=== PATIENT | male | born 1970 | race Caucasian/White ===

== ENCOUNTER 2017-10-20 14:36 | Emergency (ER) | payer OTHER ==
[2017-10-20 14:46] VITALS: BP 118/83; PULSE 87; TEMP 98; BMI 29.0
--- NOTE | 2017-10-20 14:59 | PDOC ---
Rapid Medical Evaluation Chief Complaint: Cold Symptoms Time Seen by Provider: 10/20/17 14:45 Medical Evaluation: Allergies Allergy/AdvReac Type Severity Reaction Status Date / Time No Known Allergies Allergy Verified 10/20/17 14:46 Vital Signs Temp Pulse Resp BP Pulse Ox 98.0 F 87 20 118/83 99 10/20/17 14:43 10/20/17 14:43 10/20/17 14:43 10/20/17 14:43 10/20/17 14:43 10/20/17 14:48 I have performed a brief in-person evaluation of this patient. The patient presents with a chief complaint of:cough x months, dx w/ "allergies ". No sob/cp/f/c. H/o colon ca s/p surg/chemo 3 yrs ago. No tob hx. No unexplained weight loss Pertinent physical exam findings:stable I have ordered the following:cxr The patient will proceed to the ED for further evaluation. Discharge Disposition - Diagnosis Cough - Referrals Referrals: Bronson Morse MD [Primary Care Provider] - - Patient Instructions - Post Discharge Activity
--- NOTE | 2017-10-20 15:32 | PDOC ---
History of Present Illness - General Chief Complaint: Cold Symptoms Stated Complaint: COUGH Time Seen by Provider: 10/20/17 14:45 History Source: Patient Exam Limitations: No Limitations - History of Present Illness Initial Comments: 10/20/17 15:43 Best Contact: PCP:Dr. Piter Mejia Pmhx: COlon Ca Pshx: 2004: Laproscopic Cholecystectomy 2014: COlon Resection Allergies:NKDA FH:N/A Social Hx: Ciarettes/ 0 Alcohol/ 0 Drugs/0 LMP:N/A 47-year-old male presents to the ER complaining of a nonproductive intermittent cough 8 months without fever, chills, nausea/vomiting, headache, dizziness, lightheadedness, facial pains, nasal congestion, rhinorrhea, earaches, sore throat, shortness of breath, chest pain, neck or back pains, abdominal pains. Patient states he's taken antibiotics about 4 months ago Past History - Past Medical History Allergies/Adverse Reactions: Allergies Allergy/AdvReac Type Severity Reaction Status Date / Time No Known Allergies Allergy Verified 10/20/17 14:46 Home Medications: Ambulatory Orders Azithromycin [Zithromax -] 250 mg PO UTDICT #6 tab 10/20/17 Cancer: Yes (COLORECTAL CA, CURRENT RADIATION THERAPY) COPD: No - Surgical History Abdominal Surgery: Yes (HERNIA REMOVED) Cholecystectomy: Yes - Immunization History Immunization Up to Date: Yes - Suicide/Smoking/Psychosocial Hx Smoking History: Never smoked Hx Alcohol Use: No Drug/Substance Use Hx: No Review of Systems - Review of Systems Able to Perform ROS?: Yes Comments:: 10/20/17 15:43 CONSTITUTIONAL: Absent: fever, chills, diaphoresis, generalized weakness, malaise, loss of appetite HEENT: Absent: rhinorrhea, nasal congestion, throat pain, throat swelling, difficulty swallowing, mouth swelling, ear pain, eye pain, visual Changes CARDIOVASCULAR: Absent: chest pain, loss of consciousness, palpitations, irregular heart rate, peripheral edema RESPIRATORY: +cough Absent: shortness of breath, dyspnea with exertion, orthopnea, wheezing, stridor , hemoptysis GASTROINTESTINAL: Absent: abdominal pain, abdominal distension, nausea, vomiting, diarrhea, constipation, melena, hematochezia GENITOURINARY: Absent: dysuria, frequency, urgency, hesitancy, hematuria, flank pain, genital pain MUSCULOSKELETAL: Absent: myalgia, arthralgia, joint swelling SKIN: Absent: rash, itching, pallor HEMATOLOGIC/IMMUNOLOGIC: Absent: easy bleeding, easy bruising, lymphadenopathy, frequent infections ENDOCRINE: Absent: unexplained weight gain, unexplained weight loss, heat intolerance, cold intolerance NEUROLOGIC: Absent: headache, focal weakness or paresthesias, dizziness, unsteady gait, seizure, mental status changes, bladder or bowel incontinence PSYCHIATRIC: Absent: anxiety, depression, suicidal or homicidal ideation, hallucinations. Is the patient limited Arabic proficient: No *Physical Exam - Vital Signs Last Vital Signs Temp Pulse Resp BP Pulse Ox 98.0 F 87 20 118/83 99 10/20/17 14:43 10/20/17 14:43 10/20/17 14:43 10/20/17 14:43 10/20/17 14:43 - Physical Exam Comments: 10/20/17 15:43 GENERAL: Well developed, well nourished. Awake and alert. No acute distress. HEENT: Normocephalic, atraumatic. PERRLA, EOMI. No conjunctival pallor. Sclera are non- icteric. Moist mucous membranes. Oropharynx is clear. NECK: Supple. Full ROM. No JVD. Carotid pulses 2+ and symmetric, without bruits. No thyromegaly. No lymphadenopathy. CARDIOVASCULAR: Regular rate and rhythm. No murmurs, rubs, or gallops. Distal pulses are 2+ and symmetric. PULMONARY: No evidence of respiratory distress. Lungs clear to auscultation bilaterally. No wheezing, rales or rhonchi. ABDOMINAL: Soft. Non-tender. Non-distended. No rebound or guarding. No organomegaly. Normoactive bowel sounds. MUSCULOSKELETAL Normal range of motion at all joints. No bony deformities or tenderness. No CVA tenderness. EXTREMITIES: No cyanosis. No clubbing. No edema. No calf tenderness. SKIN: Warm and dry. Normal capillary refill. No rashes. No jaundice. NEUROLOGICAL: Alert, awake, appropriate. Cranial nerves 2-12 intact. No deficits to light touch and temperature in face, upper extremities and lower extremities. No motor deficits in the in face, upper extremities and lower extremities. Normoreflexic in the upper and lower extremities. Normal speech. Toes are down- going bilaterally. Gait is normal without ataxia. PSYCHIATRIC: Cooperative. Good eye contact. Appropriate mood and affect. ED Treatment Course - RADIOLOGY Radiograph Interpretation: 10/20/17 15:45 CXR: 2v RLL infiltrate *DC/Admit/Observation/Transfer Diagnosis at time of Disposition: Cough RLL pneumonia Qualifiers: Pneumonia type: due to unspecified organism Qualified Code(s): J18.1 - Lobar pneumonia, unspecified organism - Discharge Dispostion Disposition: HOME Condition at time of disposition: Stable Decision to Admit order: No - Prescriptions Prescriptions: Azithromycin [Zithromax -] 250 mg PO UTDICT #6 tab - Referrals Referrals: Bronson Morse MD [Primary Care Provider] - - Patient Instructions Printed Discharge Instructions: DI for Atypical Pneumonia Additional Instructions: serafin wiley prescribe Follow up with our physician within 48 hours Return to the ER for severe/persistent/worsening symptoms - Post Discharge Activity
== END 2017-10-20 15:53 | disposition home or self-care (01) ==
LOC: JERFT 14:36
DX: J18.1 Lobar pneumonia, unspecified organism (principal); Z85.038 Personal history of other malignant neoplasm of large intestine
CPT/HCPCS: 71046-TC-FY; 99281-25

== ENCOUNTER 2018-05-11 17:16 | Emergency (ER) | payer OTHER ==
[2018-05-11 17:31] VITALS: TEMP 98.6; BMI 21.2
--- NOTE | 2018-05-11 17:35 | PDOC ---
Rapid Medical Evaluation Chief Complaint: Pain Time Seen by Provider: 05/11/18 17:27 Medical Evaluation: Allergies Allergy/AdvReac Type Severity Reaction Status Date / Time No Known Allergies Allergy Verified 10/20/17 14:46 05/11/18 17:30 I have performed a brief in-person evaluation of this patient. The patient presents with a chief complaint of: H/o metastatic colon ca (pulm and liver), s/p CBD stent placement 01/15 at [facility], here w/ right upper abd pain w / n/v x 3 days. Seen in office by Dr Piotr Mukherjee and sent in to r/o occlusion. Pertinent physical exam findings: Tachy to 122, afebrile, defer rest of exam to ED provider I have ordered the following:labs The patient will proceed to the ED for further evaluation Discharge Disposition - Diagnosis Abdominal pain Qualifiers: Abdominal location: upper abdomen, unspecified Qualified Code(s): R10.10 - Upper abdominal pain, unspecified - Referrals - Patient Instructions - Post Discharge Activity
[2018-05-11 18:30] LABS: BASO % 0.4 % (0-2.0); EOS % 0.2 % (0-4.5); HEMATOCRIT 44.3 % (35.4-49); HEMOGLOBIN 15.3 GM/dL (11.7-16.9); LYMPH % 3.2 % (8-40); MCHC 34.6 g/dl (32.0-35.9); MEAN CELL VOLUME 86.7 fl (80-96); MEAN PLT VOLUME 7.9 fl (7.5-11.1); MONO % 4.4 % (3.8-10.2); NEUT % 91.8 % (42.8-82.8); PLATELET COUNT 494 K/MM3 (134-434); RBC 5.11 M/mm3 (4.00-5.60); RDW 17.5 % (11.9-15.9); WHITE BLOOD COUNT 11.5 K/mm3 (4.0-10.0)
[2018-05-11 19:04] LABS: ALBUMIN 2.8 g/dl (3.4-5.0); ALK PHOS 1134 U/L (45-117); ANION GAP 8 MMOL/L (8-16); BILIRUBIN,TOTAL 0.7 mg/dL (0.2-1); BLOOD UREA NITROGEN 12 mg/dL (7-18); CALCIUM 9.1 mg/dL (8.5-10.1); CHLORIDE 102 mmol/L (98-107); CO2 28 mmol/L (21-32); CREATININE 0.9 mg/dL (0.55-1.3); GLUCOSE,RANDOM 100 mg/dL (74-106); LIPASE 142 U/L (73-393); POTASSIUM 4.9 mmol/L (3.5-5.1); SGOT/AST 124 U/L (15-37); SGPT/ALT 100 U/L (13-61); SODIUM 137 mmol/L (136-145); TOT PROT 7.3 g/dl (6.4-8.2)
[2018-05-11] MEDS ORDERED: MORPHINE SULFATE 2 MG/ML VIAL IVPUSH ONE (19:07)
[2018-05-11] MEDS ORDERED: MORPHINE SULFATE 2 MG/ML VIAL ONE (19:12)
--- NOTE | 2018-05-11 19:21 | PDOC ---
*Physical Exam - Vital Signs Last Vital Signs Temp Pulse Resp BP Pulse Ox 98.6 F 122 H 16 124/87 95 05/11/18 17:28 05/11/18 17:28 05/11/18 17:28 05/11/18 17:28 05/11/18 17:28 ED Treatment Course - LABORATORY CBC & Chemistry Diagram: 05/11/18 18:05 05/11/18 18:05 - ADDITIONAL ORDERS Additional order review: Laboratory Results 05/11/18 18:05 Sodium 137 Potassium 4.9 Chloride 102 Carbon Dioxide 28 Anion Gap 8 BUN 12 Creatinine 0.9 Creat Clearance w eGFR > 60 Random Glucose 100 Calcium 9.1 Total Bilirubin 0.7 AST 124 H ALT 100 H Alkaline Phosphatase 1134 H Total Protein 7.3 Albumin 2.8 L Lipase 142 05/11/18 18:05 RBC 5.11 MCV 86.7 MCHC 34.6 RDW 17.5 H MPV 7.9 Neutrophils % 91.8 H Lymphocytes % 3.2 L D Monocytes % 4.4 Eosinophils % 0.2 Basophils % 0.4 Medical Decision Making - Medical Decision Making 05/11/18 19:18 47 year old male with PMH colon cancer with mets to liver/adrenals/lungs presented to ED for upper abdominal pain. Pt has CBD stent. Initial Vital Signs Temp Pulse Resp BP Pulse Ox 98.6 F 122 H 16 124/87 95 05/11/18 17:28 18 17:28 18 17:28 05/11/18 17:28 05/11/18 17:28 Afebrile. Tachycardic. No tachypnea. No hypotension. No hypoxia on room air. CBC WBC 11.5 K/mm3 (4.0-10.0) H 05/11/18 18:05 RBC 5.11 M/mm3 (4.00-5.60) 05/11/18 18:05 Hgb 15.3 GM/dL (11.7-16.9) 05/11/18 18:05 Hct 44.3 % (35.4-49) 05/11/18 18:05 MCV 86.7 fl (80-96) 05/11/18 18:05 MCH 30.0 pg (25.7-33.7) 05/11/18 18:05 MCHC 34.6 g/dl (32.0-35.9) 05/11/18 18:05 RDW 17.5 % (11.9-15.9) H 05/11/18 18:05 Plt Count 494 K/MM3 (134-434) H D 05/11/18 18:05 MPV 7.9 fl (7.5-11.1) 05/11/18 18:05 Absolute Neuts (auto) 10.6 K/mm3 (1.5-8.0) H 05/11/18 18:05 Neutrophils % 91.8 % (42.8-82.8) H 05/11/18 18:05 Lymphocytes % 3.2 % (8-40) L D 05/11/18 18:05 Monocytes % 4.4 % (3.8-10.2) 05/11/18 18:05 Eosinophils % 0.2 % (0-4.5) 05/11/18 18:05 Basophils % 0.4 % (0-2.0) 05/11/18 18:05 Nucleated RBC % 0 % (0-0) 05/11/18 18:05 Leukocytosis with left shift. CMP Sodium 137 mmol/L (136-145) 05/11/18 18:05 Potassium 4.9 mmol/L (3.5-5.1) 05/11/18 18:05 Chloride 102 mmol/L (98-107) 05/11/18 18:05 Carbon Dioxide 28 mmol/L (21-32) 05/11/18 18:05 Anion Gap 8 MMOL/L (8-16) 05/11/18 18:05 BUN 12 mg/dL (7-18) 05/11/18 18:05 Creatinine 0.9 mg/dL (0.55-1.3) 05/11/18 18:05 Creat Clearance w eGFR > 60 (>60) 05/11/18 18:05 Random Glucose 100 mg/dL (74-106) 05/11/18 18:05 Calcium 9.1 mg/dL (8.5-10.1) 05/11/18 18:05 Total Bilirubin 0.7 mg/dL (0.2-1) 05/11/18 18:05 AST 124 U/L (15-37) H 05/11/18 18:05 ALT 100 U/L (13-61) H 05/11/18 18:05 Alkaline Phosphatase 1134 U/L (45-117) H 05/11/18 18:05 Total Protein 7.3 g/dl (6.4-8.2) 05/11/18 18:05 Albumin 2.8 g/dl (3.4-5.0) L 05/11/18 18:05 Lipase 142 U/L (73-393) 05/11/18 18:05 No electrolyte abnormalities. No CHRIS. Transaminitis. - Not increased from prior lab work 12/2017 Normal lipase. Urine Test Results Urine Color Mary Jane 05/11/18 19:29 Urine Appearance Clear 05/11/18 19: Urine pH 5.0 (5.0-8.0) D 05/11/18 19:29 Ur Specific [place] 1.024 (1.010-1.035) 05/11/18 19:29 Urine Protein 1+ (NEGATIVE) H 05/11/18 19:29 Urine Glucose (UA) Negative (NEGATIVE) 05/11/18 19:29 Urine Ketones Negative (NEGATIVE) 05/11/18 19:29 Urine Blood Negative (NEGATIVE) 05/11/18 19:29 Urine Nitrite Negative (NEGATIVE) 05/11/18 19:29 Urine Bilirubin Negative (<2.0 mg/dL) 05/11/18 19:29 Ur Leukocyte Esterase Negative (NEGATIVE) 05/11/18 19:29 Ur Epithelial Cells Rare /HPF (FEW) 05/11/18 19:29 Urine Mucus Moderate 05/11/18 19:29 No evidence of UTI. CT abdomen/pelvis report: Abdomen and pelvis CT (with contrast) Clinical information: possible CBD stent occlusion/migration Multiplanar imaging was performed following the intravenous administration of nonionic contrast. Enteric contrast was not administered. In comparison to a prior CT exam of 01/26/2018 there is been interval insertion of a biliary stent which appears unremarkable in position. The cephalad aspect of the stent is positioned at the hepatic duct confluence, at the distal aspect is within the lumen of the second portion of the duodenal sweep. Interval resolution of extrahepatic biliary tract dilatation is noted as well as marked improvement in intrahepatic ductal dilatation. Status post cholecystectomy as on the prior exam. Interval increase in size and number is noted of very numerous left and right hepatic lobe mass lesions consistent with metastatic neoplastic disease. The most prominent hepatic lesion measures approximately 3 cm in diameter. Increased size and number is also noted involving multiple noncalcified nodules within the partially imaged lower lung ward. There is increased bilateral lower lobe interstitial thickening probably on the basis of lymphangitic neoplastic disease. A 7 cm left lower lobe partially necrotic mass lesion is again seen with associated distal atelectasis. There is resultant mild left lower lobe atelectasis. A small left pleural effusion is again seen Interval development of mild mesenteric edema is seen centrally. Multiple small bilateral renal intracortical hypodense foci noted on the prior exam are not as well seen which may have been on the basis of acute ischemia versus acute pyelonephritis. Stable bilateral adrenal lesions are seen. The spleen, and pancreas demonstrate no definite abnormality. There is no aortic aneurysm. No gross lymphadenopathy is seen. A surgical anastomosis is again noted along the rectosigmoid bowel. Note is again made of a small amount of pelvic free fluid. There is no CT evidence of appendicitis, diverticulitis or colitis. Colonic fecal retention which is probably moderate. Fractures are seen involving the right seventh and eighth ribs laterally which appear to be subacute. There is no obvious associated mass lesion or osteolysis. Impression: In comparison to a CT exam of 01/26/2018 prominently increased size and number is noted of very numerous hepatic lesions consistent with metastatic neoplastic disease. Interval insertion of a biliary stent is seen which appears unremarkable in position. Markedly improved biliary tract dilatation is noted. Increased size and number is seen of multiple bilateral lower lobe pulmonary nodules. There is increased bilateral lower lobe interstitial thickening probably on the basis of lymphangitic neoplastic disease. Note is again made of a 7 cm partially necrotic left lower lobe mass lesion with associated atelectasis and resultant mild ipsilateral mediastinal deviation. A small left pleural effusion is again noted. Development of mild mesenteric edema is noted. Stable bilateral adrenal lesions are seen. A rectosigmoid surgical bowel anastomosis is again noted. A small amount of pelvic free fluid is seen without interval change. Colonic fecal retention is noted which is probably somewhat increased. Fractures are noted of the right seventh and eighth ribs laterally which appear to be subacute and probably nonpathologic. Reported By: Babak Engle MD 05/11/18 21:19 Pt reassessed, stated 0/10 abdominal pain. Examination: abdomen soft, flat, nontender to palpation. Pt informed of results and given copy of lab work/CT report. Pt informed to follow up with PCP, oncologist and GI. *DC/Admit/Observation/Transfer Diagnosis at time of Disposition: Abdominal pain Qualifiers: Abdominal location: upper abdomen, unspecified Qualified Code(s): R10.10 - Upper abdominal pain, unspecified - Discharge Dispostion Disposition: HOME Condition at time of disposition: Improved Decision to Admit order: No - Referrals - Patient Instructions Printed Discharge Instructions: DI for Colorectal Cancer Additional Instructions: You were seen today for abdominal pain. Your liver/gall bladder enzymes were elevated, but better than in December 2017. Your CT showed metastasis to your lungs, adrenals, and liver. Your stent was in place on the CT report. You had older fractures to your right 7th and 8th rib. Follow up with your primary care doctor, oncologist and carpenter repair in 1-2 days. I have provided you with copies of your lab work and CT report to give to your doctors. Return to the Emergency Department for increasing pain, vomiting, blood in vomit, blood in stool, fever, chest pain, shortness of breath, or any other new, worsening or concerning symptoms. - Post Discharge Activity Forms/Work/School Notes: Back to Work
[2018-05-11] MEDS ORDERED: PIPERACILLIN/TAZOB 4.5 GM 4.5 GM in DEXTROSE 5%-WATER - 100 ML IVPB ONE (19:44)
[2018-05-11 19:45] LABS: URINE APPEARANCE CLEAR; URINE BILIRUBIN NEGATIVE (<2.0 mg/dL); URINE COLOR AMBER; URINE GLUCOSE (UA) NEGATIVE (NEGATIVE); URINE KETONE NEGATIVE (NEGATIVE); URINE LEUK ESTERASE NEGATIVE (NEGATIVE); URINE NITRITE NEGATIVE (NEGATIVE); URINE PROTEIN 1+ (NEGATIVE); URINE UROBILINOGEN 4.0 E.U/dl mg/dL (0.2-1.0)
[2018-05-11 19:48] LABS: EPI CELLS RARE /HPF (FEW); URINE MUCUS MODERATE
--- NOTE | 2018-05-11 19:50 | PDOC ---
Attending Attestation - Resident Resident Name: Adair Jennings - ED Attending Attestation I have performed the following: I have examined & evaluated the patient, The case was reviewed & discussed with the resident, I agree w/resident's findings & plan, Exceptions are as noted - HPI HPI: 05/11/18 19:45 The patient is a 47 year old male with a significant PMH of colon cancer with metastasis to the adrenal glands, liver and lungs s/p CBD stent placement 01/15 at [facility], recently completed chemo at [facility] (last 2 weeks ago) who presents to the emergency department sent in by Dr. Morse for evaluation of upper abdominal pain and distension since December that has worsened over the past three days. Patient states the abdominal pain is severe, nonradiating, and intermittent with associated nausea. Patient denies any changes in bowel movements. Patient has been taking Tylenol with minimal relief. Patient was sent in by Dr. Morse to rule out CBD stent occlusion. The patient denies chest pain, shortness of breath, headache and dizziness. Denies fever, chills, vomit, diarrhea and constipation. Denies dysuria, frequency, urgency and hematuria. Allergies: NKA Past surgical history: CBD stent Social history: No reported alcohol, drug or cigarette use. PCP: Dr. Morse and Dr. Saldaña Hem Onc: Dr. Gaston at [facility] [phone] or [phone] - Physicial Exam PE: 05/11/18 19:45 GENERAL: Awake, alert, and fully oriented, in no acute distress. Non toxic EYES: PERRLA, EOMI, sclera anicteric, conjunctiva clear ENT: Oropharynx clear without exudates. Moist mucosa NECK: Normal ROM, supple, no lymphadenopathy, JVD, or masses LUNGS: Breath sounds equal, clear to auscultation bilaterally. No wheezes, and no crackles HEART: Regular rate and rhythm, normal S1 and S2, no murmurs, rubs or gallops ABDOMEN: Soft, +epigastric and RUQ ttp, normoactive bowel sounds. No guarding, no rebound. No masses EXTREMITIES: Normal range of motion, no edema. No cords, erythema, or tenderness NEUROLOGICAL: Normal speech, cranial nerves intact, equal strength and sensation b/l SKIN: Warm, Dry, normal turgor, no rashes or lesions noted. - Medical Decision Making 05/11/18 19:48 47yo M hx metastatic colon c/a s/p CBD duct, recently completed chemo 2 weeks ago presents to the ED with progressive epigastric/RUQ abd pain and c/f occluded CBD stent. Pt tachycardic on arrival, remaining vitals wnl. Pt covered with zosyn in light of pain, tachycardia, leukocytosis to 11.5, recent chemo. Labs with mildly elevated AST/ALT to the low 100s and Alkphos in the 1000s. CTAP pending. Case signed out to overnight attending for f/u on CTAP, reassessment, disposition.
[2018-05-11 20:04] LABS: PLATELET ESTIMATE INCREASED
[2018-05-11] MEDS ORDERED: PIPERACILLIN/TAZOB 4.5 GM 4.5 GM/100 ML BAG IVPB ONE (20:07)
--- NOTE | 2018-05-11 20:28 | PDOC ---
History of Present Illness - General Chief Complaint: Pain Stated Complaint: PCP SENT Time Seen by Provider: 05/11/18 17:27 History Source: Patient Exam Limitations: No Limitations - History of Present Illness Initial Comments: 05/11/18 20:00 47 yo male pmh of primary colon cancer with metastasis to the liver, adrenal glands and lungs and a recent admission for abdominal pain with stenosis to the CBD (stent placed) and elevated LFTs presents to the ED from PCP office for continued abdominal pain. Pt states his abdominal pain has been constant since his admission but over the last 3 days has worsened. Pain is RUQ, epigastric and LUQ without radiation to the back, constant and made worse 1 hour after eating. pateint states the pain is of the same quality as before but the intensity elevated. The only pain medication given is Tylenol which does not help. Pt denies F/C, CP, new SOB, or changes in bowel or bladder habits but admits to chronic nausea without vomiting. Of note, last Chemo was 2 weaks ago at with [facility]. Past History - Past Medical History Allergies/Adverse Reactions: Allergies Allergy/AdvReac Type Severity Reaction Status Date / Time No Known Allergies Allergy Verified 05/11/18 17:32 Home Medications: Ambulatory Orders NK [No Known Home Medication] 01/26/18 Cancer: Yes (COLORECTAL CA, CURRENT RADIATION THERAPY) COPD: No Lung CA: Yes (Metastatic Ca) - Surgical History Abdominal Surgery: Yes (HERNIA REMOVED) Cholecystectomy: Yes - Immunization History Immunization Up to Date: Yes - Suicide/Smoking/Psychosocial Hx Smoking History: Never smoked Have you smoked in the past 12 months: No Information on smoking cessation initiated: No Hx Alcohol Use: No Drug/Substance Use Hx: No Substance Use Type: None Review of Systems - Review of Systems Constitutional: No: Chills, Fever Respiratory: Yes: Shortness of Breath (chronic). No: Wheezing Cardiac (ROS): No: Chest Pain, Edema ABD/GI: Yes: Nausea (chronic), Other (pain). No: Constipated, Diarrhea, Vomiting : No: Burning, Dysuria Musculoskeletal: No: Back Pain *Physical Exam - Vital Signs Last Vital Signs Temp Pulse Resp BP Pulse Ox 98.6 F 122 H 16 124/87 95 05/11/18 17:28 05/11/18 17:28 05/11/18 17:28 05/11/18 17:28 05/11/18 17:28 - Physical Exam General Appearance: Yes: Nourished, Appropriately Dressed. No: Apparent Distress HEENT: positive: EOMI Respiratory/Chest: positive: Lungs Clear, Decreased Breath Sounds. negative: Crackles Cardiovascular: positive: Regular Rhythm, S1, S2, Tachycardia. negative: Edema , JVD, Murmur Vascular Pulses: Dorsalis-Pedis (R): 3+, Doralis-Pedis (L): 3+ Gastrointestinal/Abdominal: positive: Normal Bowel Sounds, Tenderness (RUQ, LUQ and epigastric region. Non peritoneal s/s ). negative: Pulsatile Mass, Rebound Extremity: positive: Normal Capillary Refill Integumentary: positive: Normal Color, Dry, Warm Neurologic: positive: Fully Oriented, Alert, Normal Mood/Affect Moderate Sedation - Procedure Monitoring Vital Signs: Procedure Monitoring Vital Signs Temperature 98.6 F 05/11/18 17:28 Pulse Rate 122 H 05/11/18 17:28 Respiratory Rate 16 05/11/18 17:28 Blood Pressure 124/87 05/11/18 17:28 O2 Sat by Pulse Oximetry (%) 95 05/11/18 17:28 ED Treatment Course - LABORATORY CBC & Chemistry Diagram: 05/11/18 18:05 05/11/18 18:05 - ADDITIONAL ORDERS Additional order review: Laboratory Results 05/11/18 05/11/18 19:29 18:05 Sodium 137 Potassium 4.9 Chloride 102 Carbon Dioxide 28 Anion Gap 8 BUN 12 Creatinine 0.9 Creat Clearance w eGFR > 60 Random Glucose 100 Calcium 9.1 Total Bilirubin 0.7 AST 124 H ALT 100 H Alkaline Phosphatase 1134 H Total Protein 7.3 Albumin 2.8 L Lipase 142 Urine Color Mary [place] Urine Appearance Clear Urine pH 5.0 D Ur Specific [place] 1.024 Urine Protein 1+ H Urine Glucose (UA) Negative Urine Ketones Negative Urine Blood Negative Urine Nitrite Negative Urine Bilirubin Negative Urine Urobilinogen 4.0 e.u/dl Ur Leukocyte Esterase Negative Urine WBC (Auto) 1 Urine RBC (Auto) 1 Ur Epithelial Cells Rare Urine Mucus Moderate 05/11/18 18:05 RBC 5.11 MCV 86.7 MCHC 34.6 RDW 17.5 H MPV 7.9 Neutrophils % 91.8 H Lymphocytes % 3.2 L D Monocytes % 4.4 Eosinophils % 0.2 Basophils % 0.4 - RADIOLOGY Radiology Studies Ordered: Category Date Time Status ABDOMEN & PELVIS CT WITH CONTR [CT] Stat CT Scan 05/11/18 18:26 Ordered - Medications Given in the ED: ED Medications Discontinued Medications Generic Name Dose Route Start Last Admin Trade Name Segundo PRN Reason Stop Dose Admin Morphine Sulfate 2 mg 05/11/18 19:07 05/11/18 19:19 Morphine Sulfate IVPUSH 05/11/18 19:08 2 mg ONCE ONE Administration Medical Decision Making - Medical Decision Making 05/11/18 20:43 47 yo male with hx of colon cancer with mets presents to ED with worsening known abdominal pain. Pt only received Tylenol for pain control. Vitals shows tachycardia, reassess after pain controlled. DDX: Chronic abdominal pain not controlled, migration of CBD stent, stenosis to CB, gall stones, cholangitis Will order abdomen/pelvis CT with IV contrast to visualize stent. Pt likely to be admitted due to inability to visualize if CBD is stenosed, will need MRI mildly elevated WBC and LFTs but much better than previous admission Pt signed out to Dr. Berry *DC/Admit/Observation/Transfer Diagnosis at time of Disposition: Abdominal pain Qualifiers: Abdominal location: upper abdomen, unspecified Qualified Code(s): R10.10 - Upper abdominal pain, unspecified - Referrals - Patient Instructions - Post Discharge Activity
[2018-05-11 22:09] VITALS: BP 120/78; PULSE 89
== END 2018-05-11 22:09 | disposition home or self-care (01) ==
LOC: JER 17:16
PROC: 3E033NZ Introduction of Analgesics, Hypnotics, Sedatives into Peripheral Vein, Percutaneous Approach (ICD-10-PCS; principal; 2018-05-11)
PROC: 3E03329 Introduction of Other Anti-infective into Peripheral Vein, Percutaneous Approach (ICD-10-PCS; 2018-05-11)
DX: R10.10 Upper abdominal pain, unspecified (principal); Z85.038 Personal history of other malignant neoplasm of large intestine
CPT/HCPCS: 36415; 74177-TC; 80053; 81003; 81015; 83690; 85025; 96365; 96375; 99282-25

== ENCOUNTER 2018-05-19 16:18 | Inpatient (IN) | payer OTHER ==
--- NOTE | 2018-05-19 16:40 | PDOC ---
Attending Attestation - HPI HPI: 05/19/18 17:53 The patient is a 47 year old male with a significant past medical history of Rectal CA (now metastasized to the lungs, on chemotherapy) who presents to the ED with fever and rigor since earlier today. The patient had a biliary duct obstruction and was stented by Dr. Charles on 12/2017. Patient was supposed to follow up with [facility] but never did. Patient was seen in the ED in early April and his stent was normal. Patient was admitted at [facility] a week ago with an infected stent, had it replaced, was placed on augmentin and discharged home on Wednesday (05/17/18). Patient comes into the ED because he developed fever and rigors today. Oncologist: Dr. Gaston PCP: Dr. Morse - Physicial Exam PE: 05/19/18 17:53 Constitutional: + Jaundice, rigoring, hot to touch. Awake, alert, oriented. No acute distress. Head: Normocephalic. Atraumatic Eyes: PERRL. EOMI. Conjunctivae are not pale. ENT: + dry mucous membranes. Posterior pharynx without exudates or erythema. Uvula midline. Neck: Supple. Full ROM. No lymphadenopathy. Cardiovascular: + Tachycardia, Regular rhythm. S1, S2 regular. Distal pulses are 2+ and symmetric. Pulmonary/Chest: +tachypnea, hypoxia. Coarse breath sounds diffusely. No wheezing, rales or rhonchi. Abdominal: + upper abdominal tenderness. Soft and non-distended. No rebound, guarding or rigidity. No organomegaly. No palpable masses. Good bowel sounds. Back: No CVA tenderness. Musculoskeletal: No edema. No cyanosis. No clubbing. Full range of motion in all extremities. Nocalf tenderness. Radial/pedal pulses are intact and 2+ bilaterally Skin: Skin is warm and dry. No petechiae. No purpura. Neurological: Alert and oriented to person, place, and time. Cranial nerves II -XII are grossly intact. Normal speech. Strength is grossly symmetric. No sensory deficits. Psychiatric: Good eye contact. Normal interaction, affect and behavior. <Destiny Oconnell - Last Filed: 05/19/18 17:53> - Resident Resident Name: Pushpa Zendejas - ED Attending Attestation I have performed the following: I have examined & evaluated the patient, The case was reviewed & discussed with the resident, I agree w/resident's findings & plan, Exceptions are as noted - Critical Care Time Total Critical Care Time: 45 Critical Care Statement: The care of this patient involved high complexity decision making to prevent further life threatening deterioration of the patient 's condition and/or to evaluate & treat vital organ system(s) failure or risk of failure. - Medical Decision Making 05/19/18 16:40 I, Dr. Soumya Villarreal, DO, attest that this document has been prepared under my direction and personally reviewed by me in its entirety. I further attest, that it accurately reflects all work, treatment, procedures and medical decision -making performed by me. 05/19/18 17:23 a/p: 47yo male with hx of recent infected biliary stent on amox after having the stent replaced at [place] earlier this week -pt with fever today -upper abd pain -tachy/sob/hypoxic -pt hypotensive upon arrival -pt with chronic cough - hx rectal ca with mets to lungs -pt tremulous/rigors/septic appearing -will start broad spectrum abx -will give tylenol for fever -ivf hydration -cultures, labs, cxr, ekg -pt will need admission -call placed to Dr. Charles 05/19/18 18:[address] Houston who will be down to eval the patient 05/19/18 18:39 dr. houston at the bedside discussed the case with Dr. Charles 05/19/18 18:40 BP improved port accessed- cultures sent flu negative large pleural effusion on L HR improved ct c/a/p pending case discussed with the ICU resident who will be down to eval the patient resident discussed the case with ZANDRA who accepts pt to service T bili was 1.5 upon discharge from [facility] - case discussed with the GI doc from [facility] who replaced the stent wednesday. Had sepsis, tbili 3 on wednesday night there <Soumya Villarreal - Last Filed: 05/19/18 18:43> Heart Score/ECG Review - ECG Intrepretation Comment:: 05/19/18 17:39 sinus tach at 171, baseline artifact, abnl ekg <Kurkowski,Soumya - Last Filed: 05/19/18 18:43> Attestations - Attestations 05/19/18 17:53 Documentation prepared by Destiny Oconnell, acting as medical insurance claims processor for Soumya Villarreal DO <Destiny Oconnell - Last Filed: 05/19/18 17:53>
[2018-05-19 16:51] VITALS: BMI 22.0
[2018-05-19] MEDS ORDERED: SODIUM CHLORIDE 1,973 ML IV ONE (16:55)
[2018-05-19] MEDS ORDERED: PIPERACILLIN/TAZOB 3.375 GM 3.375 GM in DEXTROSE 5%-WATER - 50 ML IVPB ONE (16:58)
[2018-05-19] MEDS ORDERED: ACETAMINOPHEN INJECTION 100 ML IVPB ONE (17:06)
[2018-05-19] MEDS ORDERED: PIPERACILLIN/TAZOB 3.375 GM 3.375 GM/50 ML BAG IVPB ONE (17:07)
[2018-05-19 17:25] LABS: BASO % 0.3 % (0-2.0); EOS % 0.2 % (0-4.5); HEMATOCRIT 37.7 % (35.4-49); LYMPH % 2.1 % (8-40); MCH 29.4 pg (25.7-33.7); MCHC 34.6 g/dl (32.0-35.9); MEAN CELL VOLUME 84.9 fl (80-96); MEAN PLT VOLUME 8.7 fl (7.5-11.1); MONO % 0.6 % (3.8-10.2); NEUT % 96.8 % (42.8-82.8); PLATELET COUNT 133 K/MM3 (134-434); RBC 4.44 M/mm3 (4.00-5.60); RDW 19.2 % (11.9-15.9); WHITE BLOOD COUNT 7.3 K/mm3 (4.0-10.0)
[2018-05-19] MEDS ORDERED: ACETAMINOPHEN 1000 MG/100 ML VIAL (NON FORMULARY) IVPB ONE (17:27)
[2018-05-19] MEDS ORDERED: VANCOMYCIN 1 GRAM (PRE-DOCKED) 1,000 MG/250 ML BAG IVPB ONE ×2 (17:27→17:51)
[2018-05-19 17:32] LABS: PH,URINE 5.5 (5.0-8.0); URINE APPEARANCE Turbid; URINE BILIRUBIN 3+ (<2.0 mg/dL); URINE COLOR Orange; URINE GLUCOSE (UA) Trace (NEGATIVE); URINE KETONE Trace (NEGATIVE); URINE LEUK ESTERASE Negative (NEGATIVE); URINE NITRITE Negative (NEGATIVE); URINE PROTEIN 3+ (NEGATIVE); URINE UROBILINOGEN >=8.0 E.U./dl mg/dL (0.2-1.0)
[2018-05-19 17:35] LABS: VENOUS PC02 45.6 mmHg (38-52); VENOUS PH 7.39 (7.32-7.42); VENOUS PO2 20.1 mmHg (28-48)
[2018-05-19 17:37] LABS: INR 1.27 (0.83-1.09)
[2018-05-19 17:40] LABS: ACTIVATED PTT 31.2 SECONDS (25.2-36.5)
[2018-05-19 17:54] LABS: MAGNESIUM 2.3 mg/dL (1.8-2.4); PHOSPHOROUS 1.4 mg/dL (2.5-4.9)
--- NOTE | 2018-05-19 17:57 | PDOC ---
History of Present Illness - General Chief Complaint: Shortness of Breath Stated Complaint: DIFF. BREATHING Time Seen by Provider: 05/19/18 16:39 History Source: Patient, Significant Other Exam Limitations: No Limitations Past History - Past Medical History Allergies/Adverse Reactions: Allergies Allergy/AdvReac Type Severity Reaction Status Date / Time No Known Allergies Allergy Verified 05/19/18 16:51 Home Medications: Ambulatory Orders NK [No Known Home Medication] 01/26/18 Cancer: Yes (COLORECTAL CA, CURRENT RADIATION THERAPY) COPD: No Liver Disease: Yes (liver cA) Lung CA: Yes (Metastatic Ca) - Surgical History Abdominal Surgery: Yes (HERNIA REMOVED) Cholecystectomy: Yes - Immunization History Immunization Up to Date: Yes - Suicide/Smoking/Psychosocial Hx Smoking History: Unknown if ever smoked Have you smoked in the past 12 months: No Information on smoking cessation initiated: No Hx Alcohol Use: No Drug/Substance Use Hx: No Substance Use Type: None *Physical Exam - Vital Signs Last Vital Signs Temp Pulse Resp BP Pulse Ox 101.7 F H 145 H 24 H 98/56 L 97 05/19/18 16:55 05/19/18 16:38 05/19/18 16:38 05/19/18 16:38 05/19/18 16:38 Moderate Sedation - Procedure Monitoring Vital Signs: Procedure Monitoring Vital Signs Temperature 101.7 F H 05/19/18 16:55 Pulse Rate 145 H 05/19/18 16:38 Respiratory Rate 24 H 05/19/18 16:38 Blood Pressure 98/56 L 05/19/18 16:38 O2 Sat by Pulse Oximetry (%) 97 05/19/18 16:38 ED Treatment Course - LABORATORY CBC & Chemistry Diagram: 05/19/18 17:16 05/19/18 17:16 - ADDITIONAL ORDERS Additional order review: Laboratory Results 05/19/18 05/19/18 05/19/18 17:16 17:16 17:16 PT with INR 15.00 H INR 1.27 H PTT (Actin FS) 31.2 VBG pH 7.39 POC VBG pCO2 45.6 POC VBG pO2 20.1 L Mixed VBG HCO3 26.8 H Urine Color [place] Urine Appearance Turbid Urine pH 5.5 Ur Specific [place] >= 1.030 Urine Protein 3+ H D Urine Glucose (UA) Trace Urine Ketones Trace Urine Blood 2+ H Urine Nitrite Negative Urine Bilirubin 3+ H Urine Urobilinogen >=8.0 e.u./dl Ur Leukocyte Esterase Negative 05/19/18 17:16 RBC 4.44 MCV 84.9 MCHC 34.6 RDW 19.2 H MPV 8.7 D Neutrophils % 96.8 H Lymphocytes % 2.1 L D Monocytes % 0.6 L D Eosinophils % 0.2 Basophils % 0.3 - RADIOLOGY Radiology Studies Ordered: Category Date Time Status ABDOMEN CT WITH CONTRAST* [CT] Stat CT Scan 05/19/18 17:00 Ordered - Medications Given in the ED: ED Medications Discontinued Medications Generic Name Dose Route Start Last Admin Trade Name Freq PRN Reason Stop Dose Admin Acetaminophen 1,000 mg 05/19/18 17:27 05/19/18 17:41 Ofirmev Injection - IVPB 05/19/18 17:28 1,000 mg ONCE ONE Administration Piperacillin Sod/Tazobactam 50 mls @ 100 mls/hr 05/19/18 16:58 05/19/18 17:41 Sod 3.375 gm/ Dextrose IVPB 05/19/18 17:27 100 mls/hr ONCE ONE Administration Protocol Medical Decision Making - Medical Decision Making Pt was seen at bedside, also will be seen by attending Dr. Villarreal. Pt presenting with complaints of subjective fever, chills, and upper abdominal pain since this morning. Rectal temp 101.7, HR 130s, RR 27, BP 976/69, O2 100% on venti mask. PE showed clear breath sounds b/l, diffuse upper abdominal tenderness, worst in the RUQ and LUQ. Considering re-infected biliary stent Ordered work-up including septic work-up, influenza, troponin, portable chest x- ray, ECG, abd/pelvis CT with IV contrast. Provided 30 cc/kg IV NS, 1 g ofirmev, 3.375 g zosyn, and 1 g vanc for improvement of pain and antibiotic coverage. Will continue to reassess pt and monitor for symptomatic improvement. 05/19/18 17:48 Call was placed to Dr. Ha, who does not perform endoscopic biliary surgeries at [facility]. Called [facility] to see if they will accept pt for transfer. ECG showed sinus tachycardia, no significant ST changes. HR 148, [id number] (likely not picking up some T waves due to tachycardia). Portable chest x-ray at bedside. 05/19/18 17:57 Dr. Ha present at bedside to see pt. CBC WNL. UA positive for bilirubin/urobilinogen and blood, negative for leuk esterase. Trop <.02, lipase 250 Lactic 3.5, pt receiving antibiotics and fluids now. Spoke with on-call physician (Dr. Moser) for pts PCP at [facility]. She will also contact the GI physician he sees at [facility] to know about his current state. 05/19/18 18:02 CMP: AST 188, ALT 91, bilirubin 5 05/19/18 18:23 Chest x-ray shows large pleural effusion on the L, diffuse infiltrate on the R. Will add chest CT with abdomen/pelvis. 05/19/18 18:25 Provided 10 mg IV reglan (slowly) for headache. Pt states pain is improved and is resting comfortably. Pt went for CT scans and pending reads. Awaiting bed upstairs in ICU. 05/19/18 21:34 *DC/Admit/Observation/Transfer - Referrals - Patient Instructions - Post Discharge Activity
[2018-05-19 18:07] LABS: ALK PHOS 1109 U/L (45-117); ANION GAP 10 MMOL/L (8-16); BILIRUBIN,TOTAL 5.5 mg/dL (0.2-1); BLOOD UREA NITROGEN 15 mg/dL (7-18); CALCIUM 8.4 mg/dL (8.5-10.1); CHLORIDE 103 mmol/L (98-107); CO2 26 mmol/L (21-32); CREATININE 0.9 mg/dL (0.55-1.3); GLUCOSE,RANDOM 102 mg/dL (74-106); SGOT/AST 188 U/L (15-37); SGPT/ALT 91 U/L (13-61); SODIUM 139 mmol/L (136-145)
--- NOTE | 2018-05-19 18:26 | CON.GI ---
Consult Consult Specialty:: GI Referred by:: Dr. Chloé Mukherjee Reason for Consultation:: Biliary Sepsis - History of Present Illness Chief Complaint: Shortness of breath, abdominal pain, chills History of Present Illness: 47M admitted through [facility] for evaluation of upper abdominal pain and shortness of breath. This started today. He has a history of metastatic rectal cancer including mets to the kam hepatis. He was admitted to [facility] for evaluation of abdominal pain and progressive jaundice. He underwent ERCP with stent placement by Dr. Derek Charles and Mr. Rushing was advised to follow-up with his internal medicine veterinary technician Dr. Hernandez. The plan was discussed with Mr. Rushing and Dr. Hernandez's colleague covering at that time. He was seen at the [facility] ER 05/11/18 for abd pain. Bili at that time was 0.[address] scan of the abdomen/pelvis revealed metastatic disease along with biliary stent that appeared in place with improved biliary duct dilatation. He was discharged. He was then seen at [facility] last week for a similar picture of abdominal pain and jaundice. This resulted in an ERCP with stent change, The [facility] ER attending spoke to Dr. Virk, who performed the ERCP 05/14. Bilirubin at that time was 3, down to 1.5 post procedure. He was discharged home on Augmentin. In ER currently he was noted to be hypotensive with temp of 102.7, bilirubin of 5.5, ALP of 1109. Zosyn and IV fluids were initiated. CXR reveals a left pleural effusion. - History Source History Provided By: Patient - Past Medical History Gastrointestinal: Yes: Cancer (Rectal cancer s/p chemo/RT/resection with metastatic disease) - Alcohol/Substance Use Hx Alcohol Use: No History of Substance Use: reports: None - Smoking History Smoking history: Unknown if ever smoked Have you smoked in the past 12 months: No - Social History Usual Living Arrangement: With Spouse ADL: Independent History of Recent Travel: No Home Medications - Allergies Allergies/Adverse Reactions: Allergies Allergy/AdvReac Type Severity Reaction Status Date / Time No Known Allergies Allergy Verified 05/19/18 16:51 - Home Medications Home Medications: Ambulatory Orders NK [No Known Home Medication] 01/26/18 Family Disease History - Family Disease History Family Disease History: Other: Father (Alive: HTN), Mother (Alive: healthy), Brother (1 brother, healthy), Sister (2, healthy), Daughter (3, healthy) Review of Systems - Review of Systems Constitutional: reports: Chills, Fever, Unintentional Wgt. Loss Cardiovascular: denies: Chest Pain Respiratory: reports: SOB Gastrointestinal: reports: Abdominal Pain Physical Exam-GI Vital Signs: Vital Signs Temperature 101.7 F H 05/19/18 18:30 Pulse Rate 145 H 05/19/18 18:30 Respiratory Rate 24 H 05/19/18 18:30 Blood Pressure 93/69 L 05/19/18 18:30 O2 Sat by Pulse Oximetry (%) 96% on RA 05/19/18 18:30 Constitutional: Yes: Calm Eyes: Yes: Sclera Icterus Cardiovascular: Yes: Tachycardia (regular rhythm) Respiratory: Yes: Diminished (at bases B/L L>R) Gastrointestinal Inspection: No: Distention ...Auscultate: Yes: Normoactive Bowel Sounds ...Palpate: Yes: Soft, Tenderness (TTP RUQ / Epigastrium). No: Guarding, Tenderness, Rebound ...Percussion: No: Tympanitic Edema: Yes Edema: LLE: 1+, RLE: 1+ Neurological: Yes: Alert Labs: CBC, BMP 05/19/18 17:16 05/19/18 17:16 INR, PTT INR 1.27 (0.83-1.09) H 05/19/18 17:16 Problem List - Problems (1) Obstructive jaundice due to cancer Assessment/Plan: With clinical concern for cholangitis. Concern if recent stent that was replaced has become malpositioned or clogged. I discussed the concern with Mr. Rushing and his . I explained that he will likely will need a repeat ERCP Prior to ERCP, He needs fluid resuscitation and antibiotics started Awaiting CT scan of the chest abdomen and pelvis. ? if lung source of infection or if thoracentesis will be needed I spoke with Dr. Charles, biliary endoscopist. He will be following as well and will review CT scan from this evening. He is available to perform ERCP, emergently if necessary. ID Consult was placed I explained to Mr. Rushing and his that this could be a potentially life threatning event. AM Labs Code(s): K83.1 - OBSTRUCTION OF BILE DUCT; C80.1 - MALIGNANT (PRIMARY) NEOPLASM , UNSPECIFIED
[2018-05-19 18:38] LABS: ANISOCYTOSIS 1+; MACROCYTOSIS 1+; PLATELET ESTIMATE ADEQUATE
[2018-05-19 19:19] LABS: ARTERIAL BLD GAS O2 SATURATION 99.2 % (90-98.9); ARTERIAL BLOOD GAS BASE EXCESS 1.2 meq/l (-2-2); ARTERIAL BLOOD GAS PCO2 31.1 mmHg (35-45); ARTERIAL BLOOD GAS pH 7.49 (7.35-7.45); CARBOXYHEMOGLOBIN 1.1 gm% (0.5-2.0)
[2018-05-19 19:23] LABS: ALLENS TEST POSITIVE
[2018-05-19] MEDS ORDERED: MORPHINE SULFATE 2 MG/ML VIAL IVPUSH PRN (19:26)
--- NOTE | 2018-05-19 19:26 | HP ---
CHIEF COMPLAINT: SOB and fever PCP: Bronson Morse MD HISTORY OF PRESENT ILLNESS: 47 year old male with a PMH significant for colorectal CA with metastases to the lungs and liver s/p chemo and radiation, presented to the ED with abdominal pain, shortness of breath, and fever. He had a biliary stent placed at [facility] 4 months ago and he was supposed to follow up to remove the stent month later which he never did. Last week, he presented to [facility] to have the stent replaced, he was d/nicolas 5 days ago. Since then, patient reports midepigastric abdominal pain radiating to RUQ about 5/10, worsened with food, associated with fever and chills. He reports nausea and and 2 episodes of billiary vomiting. SOB worsened when laying flat and with exertion. He can only walk about 25 steps before feeling SOB. He reports chronic cough with clear sputum for the past several months. Patient noticed darkening of urine, but no burning sensation or hematuria. H Patient now c/o Since last week, patient reports frontal pulsating STEEN 7/10 radiating to temporal and occipital region. Patient denies blurry vision, sore throat, difficulty swallowing, CP, palpitations, GERD, joint pain, or leg swelling. Denies recent travel or sick contacts. Upon admission to the ED, rectal temp was 101.7, HR 145, rr 24, BP 98/56. Labs notable for lactic acid of 3.6. Total bilirubin 5.5, AST/ALT 188/91, Alk phos 1109. CXR with possible LLL pleural effusion, final read pending. CT of chest/ abdomen/CT pending. 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 Smoking: Never Alcohol: Denies Drugs: Denies Allergies No Known Allergies Allergy (Verified 05/19/18 16:51) HOME MEDICATIONS: Home Medications Medication Instructions Recorded NK [No Known Home Medication] 01/26/18 REVIEW OF SYSTEMS CONSTITUTIONAL: (+) fever, chills Absent: diaphoresis, generalized weakness, malaise, loss of appetite, weight change HEENT: Absent: rhinorrhea, nasal congestion, throat pain, throat swelling, difficulty swallowing, mouth swelling, ear pain, eye pain, visual changes CARDIOVASCULAR: Absent: chest pain, syncope, palpitations, irregular heart rate, lightheadedness , peripheral edema RESPIRATORY: (+) cough wtih clear mucus chronic, dyspnea with exertion after about 25 steps Absent: shortness of breath, , orthopnea, wheezing, stridor, hemoptysis GASTROINTESTINAL: (+) abdominal pain, nausea, billiary vomiting Absent: abdominal distension, , diarrhea, constipation, melena, hematochezia GENITOURINARY: (+) Dark urine Absent: dysuria, frequency, urgency, hesitancy, hematuria, flank pain, genital pain MUSCULOSKELETAL: Absent: myalgia, arthralgia, joint swelling, back pain, neck pain SKIN: Absent: rash, itching, pallor HEMATOLOGIC/IMMUNOLOGIC: Absent: easy bleeding, easy bruising, lymphadenopathy, frequent infections ENDOCRINE: Absent: unexplained weight gain, unexplained weight loss, heat intolerance, cold intolerance NEUROLOGIC: (+) STEEN for the past week, intermittent, pulsating from frontal to occipital region Absent: headache, focal weakness or paresthesias, dizziness, unsteady gait, seizure, mental status changes, bladder or bowel incontinence PSYCHIATRIC: Absent: anxiety, depression, suicidal or homicidal ideation, hallucinations. PHYSICAL EXAMINATION Vital Signs - 24 hr 05/19/18 05/19/18 16:38 16:55 Temperature 101.7 F H 101.7 F H Pulse Rate 145 H Pulse Rate [ 144 H Apical] Respiratory 24 H 20 Rate Blood Pressure 98/56 L Blood Pressure 98/56 L [Right Arm] O2 Sat by Pulse 97 98 Oximetry (%) GENERAL: Icteric, frail, awake, alert, and fully oriented, in no acute distress. HEAD: Normal with no signs of trauma. EYES: + sclera icteric, PERRLA, EOMI EARS, NOSE, THROAT: + NCEars normal, nares patent, oropharynx clear without exudates. Moist mucous membranes. NECK: Normal range of motion, supple without lymphadenopathy, JVD, or masses. LUNGS: CTAB HEART: Sinus tachycardia, no m/r/g ABDOMEN: Mid epigastric tenderness, RUQ and RLQ tenderness, +Shah's sign, hepatomegaly 4 cm, tympanic to percussion, mildly distended, normoactive bowel sounds. MUSCULOSKELETAL: Normal range of motion at all joints. No bony deformities or tenderness. No CVA tenderness. UPPER EXTREMITIES: Linear purpura to right inner forearm, 2+ pulses, warm, well- perfused. No cyanosis. LOWER EXTREMITIES: 2+ pulses, warm, well-perfused. No calf tenderness. No peripheral edema. NEUROLOGICAL: No facial droop, normal speech. PSYCHIATRIC: Cooperative. Good eye contact. SKIN: Icteric, warm, dry, normal turgor, right arm ecchymosis 5x5cm Laboratory Results - last 24 hr 05/19/18 05/19/18 05/19/18 17:16 17:16 17:16 WBC 7.3 RBC 4.44 Hgb 13.0 Hct 37.7 MCV 84.9 MCH 29.4 MCHC 34.6 RDW 19.2 H Plt Count 133 L D MPV 8.7 D Absolute Neuts (auto) 7.1 Neutrophils % 96.8 H Neutrophils % (Manual) 91.0 H Band Neutrophils % 5.0 Lymphocytes % 2.1 L D Lymphocytes % (Manual) 3.0 L D Monocytes % 0.6 L D Monocytes % (Manual) 1 L Eosinophils % 0.2 Basophils % 0.3 Nucleated RBC % 0 Hypochromia 1+ Platelet Estimate Adequate Platelet Comment No clumping noted Anisocytosis 1+ Macrocytosis 1+ PT with INR 15.00 H INR 1.27 H PTT (Actin FS) 31.2 Anticoagulation Therapy VBG pH POC VBG pCO2 POC VBG pO2 Mixed VBG HCO3 O2 Delivery Device Oxygen Flow Rate Vent Mode Vent Rate Mechanical Rate Pressure Support Vent Sodium Potassium Chloride Carbon Dioxide Anion Gap BUN Creatinine Creat Clearance w eGFR Random Glucose Lactic Acid Calcium Phosphorus Magnesium Total Bilirubin AST ALT Alkaline Phosphatase Creatine Kinase Troponin I Total Protein Albumin Lipase Urine Color [place] Urine Appearance Turbid Urine pH 5.5 Ur Specific [place] >= 1.030 Urine Protein 3+ H D Urine Glucose (UA) Trace Urine Ketones Trace Urine Blood 2+ H Urine Nitrite Negative Urine Bilirubin 3+ H Urine Urobilinogen >=8.0 e.u./dl Ur Leukocyte Esterase Negative Influenza A (Rapid) Influenza B (Rapid) 05/19/18 05/19/18 05/19/18 17:16 17:16 17:16 WBC RBC Hgb Hct MCV MCH MCHC RDW Plt Count MPV Absolute Neuts (auto) Neutrophils % Neutrophils % (Manual) Band Neutrophils % Lymphocytes % Lymphocytes % (Manual) Monocytes % Monocytes % (Manual) Eosinophils % Basophils % Nucleated RBC % Hypochromia Platelet Estimate Platelet Comment Anisocytosis Macrocytosis PT with INR INR PTT (Actin FS) Anticoagulation Therapy VBG pH 7.39 POC VBG pCO2 45.6 POC VBG pO2 20.1 L Mixed VBG HCO3 26.8 H O2 Delivery Device Oxygen Flow Rate Vent Mode Vent Rate Mechanical Rate Pressure Support Vent Sodium 139 Potassium 4.0 Chloride 103 Carbon Dioxide 26 Anion Gap 10 BUN 15 Creatinine 0.9 Creat Clearance w eGFR > 60 Random Glucose 102 Lactic Acid 3.6 H* Calcium 8.4 L Phosphorus Magnesium Total Bilirubin 5.5 H AST 188 H ALT 91 H Alkaline Phosphatase 1109 H Creatine Kinase Troponin I Total Protein 6.0 L Albumin 2.0 L Lipase Urine Color Urine Appearance Urine pH Ur Specific [place] Urine Protein Urine Glucose (UA) Urine Ketones Urine Blood Urine Nitrite Urine Bilirubin Urine Urobilinogen Ur Leukocyte Esterase Influenza A (Rapid) Influenza B (Rapid) 05/19/18 05/19/18 05/19/18 17:16 17:16 17:48 WBC RBC Hgb Hct MCV MCH MCHC RDW Plt Count MPV Absolute Neuts (auto) Neutrophils % Neutrophils % (Manual) Band Neutrophils % Lymphocytes % Lymphocytes % (Manual) Monocytes % Monocytes % (Manual) Eosinophils % Basophils % Nucleated RBC % Hypochromia Platelet Estimate Platelet Comment Anisocytosis Macrocytosis PT with INR INR PTT (Actin FS) Anticoagulation Therapy VBG pH POC VBG pCO2 POC VBG pO2 Mixed VBG HCO3 O2 Delivery Device Oxygen Flow Rate Vent Mode Vent Rate Mechanical Rate Pressure Support Vent Sodium Potassium Chloride Carbon Dioxide Anion Gap BUN Creatinine Creat Clearance w eGFR Random Glucose Lactic Acid Calcium Phosphorus 1.4 L Magnesium 2.3 Total Bilirubin AST ALT Alkaline Phosphatase Creatine Kinase 142 Troponin I < 0.02 Total Protein Albumin Lipase 250 Urine Color Urine Appearance Urine pH Ur Specific [place] Urine Protein Urine Glucose (UA) Urine Ketones Urine Blood Urine Nitrite Urine Bilirubin Urine Urobilinogen Ur Leukocyte Esterase Influenza A (Rapid) Negative Influenza B (Rapid) Negative 05/19/18 19:10 WBC RBC Hgb Hct MCV MCH MCHC RDW Plt Count MPV Absolute Neuts (auto) Neutrophils % Neutrophils % (Manual) Band Neutrophils % Lymphocytes % Lymphocytes % (Manual) Monocytes % Monocytes % (Manual) Eosinophils % Basophils % Nucleated RBC % Hypochromia Platelet Estimate Platelet Comment Anisocytosis Macrocytosis PT with INR INR PTT (Actin FS) Anticoagulation Therapy No Result Required. VBG pH POC VBG pCO2 POC VBG pO2 Mixed VBG HCO3 O2 Delivery Device No Result Required. Oxygen Flow Rate No Result Required. Vent Mode No Result Required. Vent Rate No Result Required. Mechanical Rate No Result Required. Pressure Support Vent No Result Required. Sodium Potassium Chloride Carbon Dioxide Anion Gap BUN Creatinine Creat Clearance w eGFR Random Glucose Lactic Acid Calcium Phosphorus Magnesium Total Bilirubin AST ALT Alkaline Phosphatase Creatine Kinase Troponin I Total Protein Albumin Lipase Urine Color Urine Appearance Urine pH Ur Specific [place] Urine Protein Urine Glucose (UA) Urine Ketones Urine Blood Urine Nitrite Urine Bilirubin Urine Urobilinogen Ur Leukocyte Esterase Influenza A (Rapid) Influenza B (Rapid) ASSESSMENT/PLAN: 47 year old male with a PMH significant for colorectal CA with metastases to the lungs and liver s/p chemo and radiation, presented to the ED with abdominal pain, shortness of breath, and fever. He was admitted to the ICU for sepsis secondary to billiary stent infection. Sepsis secondary to billiary stent infection * Temp 101.7, tachycardic 135, BP hypotensive 98/56, with source of infection from billiary tract * BP improved with 2L fluid in the ED * Admit to ICU * BP and cardiac monitoring * Chiang cultures * Antibiotics * Pain control with Morphine 2 mg IVP q4h PRN * Avoid hepatotoxic agents * ID consult * GI consult * NPO after midnight for ERCP in the morning * CT of abd/pelvis/chest for mets screen and pleural effusion pending Colorectal CA * S/p chemotherapy and radiation * Followed at [facility] * NS 100cc/hr * Monitor electrolytes * NPO after midnight Prophylaxis * DVT: SCDs * GI: Protonix Disp: Patient requires further inpatient monitoring. Visit type - Emergency Visit Emergency Visit: Yes ED Registration Date: 05/19/18 Care time: The patient presented to the Emergency Department on the above date and was hospitalized for further evaluation of their emergent condition. - New Patient This patient is new to me today: Yes Date on this admission: 05/20/18 - Critical Care Critical Care patient: Yes Total Critical Care Time (in minutes): 35 Critical Care Statement: The care of this patient involved high complexity decision making to prevent further life threatening deterioration of the patient 's condition and/or to evaluate & treat vital organ system(s) failure or risk of failure.
[2018-05-19] MEDS ORDERED: SODIUM CHLORIDE 1,000 ML IV STA (19:34)
[2018-05-19 19:37] LABS: EPI CELLS RARE /HPF (FEW); URINE MUCUS MANY
--- NOTE | 2018-05-19 19:42 | CONSULT ---
Consultation: ICU consult REQUESTING PROVIDER:Soumya Villarreal DO CONSULT REQUEST: We have been asked to medically evaluate this patient for ( biliary sepsis ). HISTORY OF PRESENT ILLNESS: This is a 47 year old male with a past medical history of colorectal CA, treated 4 years ago, with lung metastases and liver mets who presented to the ED with abdominal pain , and shortness of breath. He also reports fever and chills for one week. pt had biliary stent placed in [facility] 4 months ago and he was supposed to follow up to remove the stent month later . pt did not follow up and end up went to [facility] last week to remove the stent and replaced by another one. Since then, patient reports midepigastric abdominal pain radiating to RUQ about 5/10, worsened with food, associated with fever and chills. Patient c/o nausea and has billiary vomiting about twice a week. Patient noticed darkening of urine, but no burning sensation or hematuria. Patient also reports that they took some fluid from his lungs at [facility]. Patient now c/o SOB worsened when laying flat and with exertion. He can only walk about 25 steps before feeling SOB. Patient reports chronic cough with clear sputum. Since last week, patient reports frontal pulsating STEEN 7/10 radiating to temporal and occipital region. Patient denies blurry vision, sore throat, difficulty swallowing, CP, palpitations, GERD, joint pain, or leg swelling. Denies recent travel or sick contacts. 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 Denies smoking, etoh or other substance use Family History non-contributory REVIEW OF SYSTEMS: CONSTITUTIONAL: (+) fever, chills Absent: diaphoresis, generalized weakness, malaise, loss of appetite, weight change HEENT: Absent: rhinorrhea, nasal congestion, throat pain, throat swelling, difficulty swallowing, mouth swelling, ear pain, eye pain, visual changes CARDIOVASCULAR: Absent: chest pain, syncope, palpitations, irregular heart rate, lightheadedness , peripheral edema RESPIRATORY: (+) cough wtih clear mucus chronic, dyspnea with exertion after about 25 steps Absent: shortness of breath, , orthopnea, wheezing, stridor, hemoptysis GASTROINTESTINAL: (+) abdominal pain, nausea, billiary vomiting Absent: abdominal distension, , diarrhea, constipation, melena, hematochezia GENITOURINARY: (+) Dark urine Absent: dysuria, frequency, urgency, hesitancy, hematuria, flank pain, genital pain MUSCULOSKELETAL: Absent: myalgia, arthralgia, joint swelling, back pain, neck pain SKIN: Absent: rash, itching, pallor HEMATOLOGIC/IMMUNOLOGIC: Absent: easy bleeding, easy bruising, lymphadenopathy, frequent infections ENDOCRINE: Absent: unexplained weight gain, unexplained weight loss, heat intolerance, cold intolerance NEUROLOGIC: (+) STEEN for the past week, intermittent, pulsating from frontal to occipital region Absent: headache, focal weakness or paresthesias, dizziness, unsteady gait, seizure, mental status changes, bladder or bowel incontinence PSYCHIATRIC: Absent: anxiety, depression, suicidal or homicidal ideation, hallucinations. PHYSICAL EXAMINATION Vital Signs - 24 hr 05/19/18 05/19/18 16:38 16:55 Temperature 101.7 F H 101.7 F H Pulse Rate 145 H Pulse Rate [ 144 H Apical] Respiratory 24 H 20 Rate Blood Pressure 98/56 L Blood Pressure 98/56 L [Right Arm] O2 Sat by Pulse 97 98 Oximetry (%) GENERAL: Icteric, frail, awake, alert, and fully oriented, in no acute distress. HEAD: Normal with no signs of trauma. EYES: + sclera icteric, PERRLA, EOMI EARS, NOSE, THROAT: + NCEars normal, nares patent, oropharynx clear without exudates. Moist mucous membranes. NECK: Normal range of motion, supple without lymphadenopathy, JVD, or masses. LUNGS: CTAB HEART: Sinus tachycardia, no m/r/g ABDOMEN: Mid epigastric tenderness, RUQ and RLQ tenderness, +Shah's sign, hepatomegaly 4 cm, tympanic to percussion, mildly distended, normoactive bowel sounds. MUSCULOSKELETAL: Normal range of motion at all joints. No bony deformities or tenderness. No CVA tenderness. UPPER EXTREMITIES: Linear purpura to right inner forearm, 2+ pulses, warm, well- perfused. No cyanosis. LOWER EXTREMITIES: 2+ pulses, warm, well-perfused. No calf tenderness. No peripheral edema. NEUROLOGICAL: No facial droop, normal speech. PSYCHIATRIC: Cooperative. Good eye contact. SKIN: Icteric, warm, dry, normal turgor, right arm ecchymosis 5x5cm Laboratory Results - last 24 hr 05/19/18 05/19/18 05/19/18 17:16 17:16 17:16 WBC 7.3 RBC 4.44 Hgb 13.0 Hct 37.7 MCV 84.9 MCH 29.4 MCHC 34.6 RDW 19.2 H Plt Count 133 L D MPV 8.7 D Absolute Neuts (auto) 7.1 Neutrophils % 96.8 H Neutrophils % (Manual) 91.0 H Band Neutrophils % 5.0 Lymphocytes % 2.1 L D Lymphocytes % (Manual) 3.0 L D Monocytes % 0.6 L D Monocytes % (Manual) 1 L Eosinophils % 0.2 Basophils % 0.3 Nucleated RBC % 0 Hypochromia 1+ Platelet Estimate Adequate Platelet Comment No clumping noted Anisocytosis 1+ Macrocytosis 1+ PT with INR 15.00 H INR 1.27 H PTT (Actin FS) 31.2 Anticoagulation Therapy Puncture Site ABG pH ABG pCO2 at Pt Temp ABG pO2 at Pt Temp ABG HCO3 ABG O2 Sat (Measured) ABG O2 Content ABG Base Excess Иван Test VBG pH POC VBG pCO2 POC VBG pO2 Mixed VBG HCO3 Carboxyhemoglobin Methemoglobin O2 Delivery Device Oxygen Flow Rate Vent Mode Vent Rate Mechanical Rate Pressure Support Vent Sodium Potassium Chloride Carbon Dioxide Anion Gap BUN Creatinine Creat Clearance w eGFR Random Glucose Lactic Acid Calcium Phosphorus Magnesium Total Bilirubin AST ALT Alkaline Phosphatase Creatine Kinase Troponin I Total Protein Albumin Lipase Urine Color [place] Urine Appearance Turbid Urine pH 5.5 Ur Specific [place] >= 1.030 Urine Protein 3+ H D Urine Glucose (UA) Trace Urine Ketones Trace Urine Blood 2+ H Urine Nitrite Negative Urine Bilirubin 3+ H Urine Urobilinogen >=8.0 e.u./dl Ur Leukocyte Esterase Negative Influenza A (Rapid) Influenza B (Rapid) 05/19/18 05/19/18 05/19/18 17:16 17:16 17:16 WBC RBC Hgb Hct MCV MCH MCHC RDW Plt Count MPV Absolute Neuts (auto) Neutrophils % Neutrophils % (Manual) Band Neutrophils % Lymphocytes % Lymphocytes % (Manual) Monocytes % Monocytes % (Manual) Eosinophils % Basophils % Nucleated RBC % Hypochromia Platelet Estimate Platelet Comment Anisocytosis Macrocytosis PT with INR INR PTT (Actin FS) Anticoagulation Therapy Puncture Site ABG pH ABG pCO2 at Pt Temp ABG pO2 at Pt Temp ABG HCO3 ABG O2 Sat (Measured) ABG O2 Content ABG Base Excess Иван Test VBG pH 7.39 POC VBG pCO2 45.6 POC VBG pO2 20.1 L Mixed VBG HCO3 26.8 H Carboxyhemoglobin Methemoglobin O2 Delivery Device Oxygen Flow Rate Vent Mode Vent Rate Mechanical Rate Pressure Support Vent Sodium 139 Potassium 4.0 Chloride 103 Carbon Dioxide 26 Anion Gap 10 BUN 15 Creatinine 0.9 Creat Clearance w eGFR > 60 Random Glucose 102 Lactic Acid 3.6 H* Calcium 8.4 L Phosphorus Magnesium Total Bilirubin 5.5 H AST 188 H ALT 91 H Alkaline Phosphatase 1109 H Creatine Kinase Troponin I Total Protein 6.0 L Albumin 2.0 L Lipase Urine Color Urine Appearance Urine pH Ur Specific [place] Urine Protein Urine Glucose (UA) Urine Ketones Urine Blood Urine Nitrite Urine Bilirubin Urine Urobilinogen Ur Leukocyte Esterase Influenza A (Rapid) Influenza B (Rapid) 05/19/18 05/19/18 05/19/18 17:16 17:16 17:48 WBC RBC Hgb Hct MCV MCH MCHC RDW Plt Count MPV Absolute Neuts (auto) Neutrophils % Neutrophils % (Manual) Band Neutrophils % Lymphocytes % Lymphocytes % (Manual) Monocytes % Monocytes % (Manual) Eosinophils % Basophils % Nucleated RBC % Hypochromia Platelet Estimate Platelet Comment Anisocytosis Macrocytosis PT with INR INR PTT (Actin FS) Anticoagulation Therapy Puncture Site ABG pH ABG pCO2 at Pt Temp ABG pO2 at Pt Temp ABG HCO3 ABG O2 Sat (Measured) ABG O2 Content ABG Base Excess Иван Test VBG pH POC VBG pCO2 POC VBG pO2 Mixed VBG HCO3 Carboxyhemoglobin Methemoglobin O2 Delivery Device Oxygen Flow Rate Vent Mode Vent Rate Mechanical Rate Pressure Support Vent Sodium Potassium Chloride Carbon Dioxide Anion Gap BUN Creatinine Creat Clearance w eGFR Random Glucose Lactic Acid Calcium Phosphorus 1.4 L Magnesium 2.3 Total Bilirubin AST ALT Alkaline Phosphatase Creatine Kinase 142 Troponin I < 0.02 Total Protein Albumin Lipase 250 Urine Color Urine Appearance Urine pH Ur Specific [place] Urine Protein Urine Glucose (UA) Urine Ketones Urine Blood Urine Nitrite Urine Bilirubin Urine Urobilinogen Ur Leukocyte Esterase Influenza A (Rapid) Negative Influenza B (Rapid) Negative 05/19/18 19:10 WBC RBC Hgb Hct MCV MCH MCHC RDW Plt Count MPV Absolute Neuts (auto) Neutrophils % Neutrophils % (Manual) Band Neutrophils % Lymphocytes % Lymphocytes % (Manual) Monocytes % Monocytes % (Manual) Eosinophils % Basophils % Nucleated RBC % Hypochromia Platelet Estimate Platelet Comment Anisocytosis Macrocytosis PT with INR INR PTT (Actin FS) Anticoagulation Therapy No Result Required. Puncture Site Right radial ABG pH 7.49 H ABG pCO2 at Pt Temp 31.1 L ABG pO2 at Pt Temp 147.0 H ABG HCO3 23.7 ABG O2 Sat (Measured) 99.2 H ABG O2 Content 15.0 ABG Base Excess 1.2 Иван Test Positive VBG pH POC VBG pCO2 POC VBG pO2 Mixed VBG HCO3 Carboxyhemoglobin 1.1 Methemoglobin 0.3 L O2 Delivery Device Non rebreather Oxygen Flow Rate 100% Vent Mode No Result Required. Vent Rate No Result Required. Mechanical Rate No Result Required. Pressure Support Vent No Result Required. Sodium Potassium Chloride Carbon Dioxide Anion Gap BUN Creatinine Creat Clearance w eGFR Random Glucose Lactic Acid Calcium Phosphorus Magnesium Total Bilirubin AST ALT Alkaline Phosphatase Creatine Kinase Troponin I Total Protein Albumin Lipase Urine Color Urine Appearance Urine pH Ur Specific [place] Urine Protein Urine Glucose (UA) Urine Ketones Urine Blood Urine Nitrite Urine Bilirubin Urine Urobilinogen Ur Leukocyte Esterase Influenza A (Rapid) Influenza B (Rapid) Active Medications Generic Name Dose Route Start Last Admin Trade Name Freq PRN Reason Stop Dose Admin Chlorhexidine Gluconate 1 applic 05/19/18 22:00 Hibiclens For Decolonization - TP HS JING Mupirocin 1 applic 05/19/18 22:00 Bactroban Ointment (For Decolonization) - NS 05/24/18 21:59 BID JING CBC, BMP 05/19/18 17:16 05/19/18 17:16 ASSESSMENT/PLAN: This is a 47 year old male with a past medical history of colorectal CA, treated 4 years ago, with metastases to the lungs and liver, presented to the ED with abdominal pain, and shortness of breath, admitted to the ICU for sepsis secondary to billiary stent infection. Sepsis secondary to billiary stent * Temp 101.7, tachycardic 135, BP hypotensive 98/56, with source of infection from billiary tract * BP improved with 2L fluid in the ED * Admit to ICU * BP monitor * Cardiac monitoring * Chiang cultures * Antibiotics * Pain control * Avoid hepatotoxic agents * ID consult * GI consult * NPO after midnight for ERCP in the morning * CT of abd/pelvis/chest for mets screen and pleural effusion Colorectal CA * S/p chemotherapy and radiation * Followed at [facility] * NS 2L bolus and 100cc/hr maintenance * Monitor electrolytes * NPO after midnight Prophylaxis * DVT: SCDs * GI: Protonix Dispo: We will continue to follow the patient. Thank you for this consultative opportunity. Visit type - Emergency Visit Emergency Visit: Yes ED Registration Date: 05/19/18 Care time: The patient presented to the Emergency Department on the above date and was hospitalized for further evaluation of their emergent condition. - New Patient This patient is new to me today: Yes Date on this admission: 05/19/18 - Critical Care Critical Care patient: Yes Total Critical Care Time (in minutes): 50 Critical Care Statement: The care of this patient involved high complexity decision making to prevent further life threatening deterioration of the patient 's condition and/or to evaluate & treat vital organ system(s) failure or risk of failure.
[2018-05-19] MEDS ORDERED: METOCLOPRAMIDE HCL INJECTION 10 MG/2 ML VIAL IVPUSH ONE (20:49)
[2018-05-19] MEDS: SODIUM CHLORIDE 1,000 ML IV SCH (21:10)
[2018-05-19] MEDS ORDERED: METOCLOPRAMIDE HCL INJECTION 10 MG/2 ML VIAL ONE (21:11)
[2018-05-20] MEDS ORDERED: PIPERACILLIN/TAZOBACTAM 3.375 GM VIAL IVPB ONE ×2 (01:00→05:58)
[2018-05-20] MEDS ORDERED: DEXTROSE 5%-WATER - 50 ML IVPB ONE ×2 (01:00→05:58)
[2018-05-20] MEDS: MUPIROCIN 2% TOPICAL OINTMENT FOR DECOLONIZATION NS SCH ×3 (01:03→21:33)
[2018-05-20] MEDS: CHLORHEXIDINE GLUCONATE 4% CLEANSER FOR DECOLONIZATION TP SCH ×2 (01:03→21:33)
[2018-05-20] MEDS ORDERED: PIPERACILLIN/TAZOB 3.375 GM 3.375 GM in DEXTROSE 5%-WATER - 50 ML IVPB ONE ×3 (06:00→13:00)
[2018-05-20] MEDS ORDERED: VANCOMYCIN 1 GRAM (PRE-DOCKED) 1,000 MG/250 ML BAG IVPB ONE (06:00)
[2018-05-20 06:20] LABS: EOS % 1.1 % (0-4.5); HEMATOCRIT 35.5 % (35.4-49); HEMOGLOBIN 11.3 GM/dL (11.7-16.9); LYMPH % 1.1 % (8-40); MCH 27.5 pg (25.7-33.7); MCHC 31.8 g/dl (32.0-35.9); MEAN CELL VOLUME 86.6 fl (80-96); MONO % 2.1 % (3.8-10.2); NEUT % 95.7 % (42.8-82.8); PLATELET COUNT 75 K/MM3 (134-434); RBC 4.11 M/mm3 (4.00-5.60); RDW 19.1 % (11.9-15.9); WHITE BLOOD COUNT 14.6 K/mm3 (4.0-10.0)
[2018-05-20 06:34] LABS: INR 1.31 (0.83-1.09); PROTHROMBIN TIME (PATIENT) 15.5 SEC (9.7-13.0)
[2018-05-20 07:59] LABS: ALBUMIN 1.6 g/dl (3.4-5.0); ANION GAP 9 MMOL/L (8-16); BILIRUBIN,DIRECT 3.9 mg/dL (0.0-0.2); BILIRUBIN,TOTAL 4.6 mg/dL (0.2-1); BLOOD UREA NITROGEN 12 mg/dL (7-18); CALCIUM 7.3 mg/dL (8.5-10.1); CHLORIDE 108 mmol/L (98-107); CO2 24 mmol/L (21-32); CREATININE 0.6 mg/dL (0.55-1.3); GLUCOSE,RANDOM 73 mg/dL (74-106); POTASSIUM 3.5 mmol/L (3.5-5.1); SGOT/AST 152 U/L (15-37); SGPT/ALT 69 U/L (13-61); SODIUM 141 mmol/L (136-145); TOT PROT 4.8 g/dl (6.4-8.2)
[2018-05-20 08:00] LABS: ALK PHOS 837 U/L (45-117)
--- NOTE | 2018-05-20 09:21 | CON.ID ---
Consult Consult Specialty:: infectious disease Referred by:: hospitalist Reason for Consultation:: sepsis - History of Present Illness Chief Complaint: sob, chills History of Present Illness: 47 yo man with metastatic rectal cancer s/p stent change last week at [facility] discharged on Wednesday on augmentin He reports having a thoracentesis as well while there reports last chemotherapy 6 weeks ago- could not tolerate febrile in ED to 101.7 lactic acid 3.6 no pressors needed bilirubin 5.5 on admit was 1.5 when he left [facility] blood cultures with GNR no vomiting, no abdominal pain c/o SOB - History Source History Provided By: Patient, Medical Record - Past Medical History Gastrointestinal: Yes: Cancer (Rectal cancer s/p chemo/RT/resection with metastatic disease) - Past Surgical History Additional Surgical History: port - Alcohol/Substance Use Hx Alcohol Use: No History of Substance Use: reports: None - Smoking History Smoking history: Unknown if ever smoked Have you smoked in the past 12 months: No - Social History Usual Living Arrangement: With Spouse ADL: Independent Place of : Other ([facility]) History of Recent Travel: No Home Medications - Allergies Allergies/Adverse Reactions: Allergies Allergy/AdvReac Type Severity Reaction Status Date / Time No Known Allergies Allergy Verified 05/19/18 16:51 - Home Medications Home Medications: Ambulatory Orders NK [No Known Home Medication] 01/26/18 Family Disease History - Family Disease History Family Disease History: Other: Father (Alive: HTN), Mother (Alive: healthy), Brother (1 brother, healthy), Sister (2, healthy), Daughter (3, healthy) Review of Systems - Review of Systems Constitutional: reports: Chills, Fever Eyes: reports: No Symptoms HENT: reports: No Symptoms Neck: reports: No Symptoms Cardiovascular: denies: Chest Pain Respiratory: reports: SOB Gastrointestinal: denies: Abdominal Pain, Vomiting Genitourinary: reports: No Symptoms Musculoskeletal: reports: No Symptoms Physical Exam Vital Signs: Vital Signs Temperature 98.2 F 05/20/18 08:00 Pulse Rate 82 05/20/18 08:00 Respiratory Rate 30 H 05/20/18 08:00 Blood Pressure 133/98 05/20/18 08:00 O2 Sat by Pulse Oximetry (%) 100 05/19/18 23:36 Constitutional: Yes: Well Nourished, No Distress Eyes: Yes: Sclera Icterus HENT: Yes: Atraumatic, Normocephalic, Thrush Neck: Yes: Supple, Trachea Midline Cardiovascular: Yes: Regular Rate and Rhythm Respiratory: Yes: Accessory Muscle Use, Tachypnea, Other (decreased bs on the left) Gastrointestinal: Yes: Soft, Hepatomegaly ...Rectal Exam: Yes: Deferred Extremities: Yes: WNL Edema: No Wound/Incision: Yes: Other (port site no erythema) Neurological: Yes: Alert, Oriented Labs: CBC, BMP 05/20/18 05:30 05/20/18 05:30 Microbiology 05/19/18 17:16 Blood - Peripheral Venous Blood Culture - Preliminary Pending Organism 05/19/18 17:16 Blood - Peripheral Venous Blood Culture - Preliminary Pending Organism Imaging - Results Chest X-ray: Report Reviewed, Image Reviewed (large left pleural effusion, multiple pulmonary nodules liver mets) Cat Scan: Report Reviewed, Image Reviewed Problem List - Problems (1) Sepsis Code(s): A41.9 - SEPSIS, UNSPECIFIED ORGANISM (2) Gram-negative bacteremia Code(s): R78.81 - BACTEREMIA (3) Obstructive jaundice due to cancer Code(s): K83.1 - OBSTRUCTION OF BILE DUCT; C80.1 - MALIGNANT (PRIMARY) NEOPLASM , UNSPECIFIED (4) Metastasis from rectal cancer Code(s): C79.9 - SECONDARY MALIGNANT NEOPLASM OF UNSPECIFIED SITE; C20 - MALIGNANT NEOPLASM OF RECTUM Assessment/Plan Unfortunate young man with metastatic rectal cancer with gram negative sepsis suspect secondary to stent obstruction with rise in bilirubin noted now with gram negative rods and recent admission to [facility]- discharged on augmentin would escalate antibiotics to meropenem and cover for resistant GNR-given recent hospital admission and antibiotics suspect he will need ERCP he would benefit from thoracentesis as well-possible pleurx catheter we need records from [facility] regarding his care now with thrombocytopenia secondary to sepsis-check dic parameters overall prognosis is poor d/w icu staff over 40 minutes spent in the care of this critically ill icu patient
[2018-05-20] MEDS: KCL 10 MEQ IVPB 10 MEQ/100 ML INFUS.BAG IVPB SCH ×2 (09:32→11:00)
[2018-05-20] MEDS ORDERED: MEROPENEM 1 GM in DEXTROSE 5%-WATER - 250 ML IVPB SCH (10:00)
--- NOTE | 2018-05-20 11:29 | EKG ---
Test Reason : Blood Pressure : / mmHG Vent. Rate : 148 BPM Atrial Rate : 148 BPM P-R Int : 000 ms QRS Dur : 084 ms QT Int : 332 ms P-R-T Axes : 079 095 094 degrees QTc Int : 521 ms SINUS TACHYCARDIA RIGHTWARD AXIS ABNORMAL ECG WHEN COMPARED WITH ECG OF 25-JAN-2018 22:40, VENT. RATE HAS INCREASED BY [address] NOW DEPRESSED IN ANTERIOR LEADS T WAVE INVERSION NOW EVIDENT IN INFERIOR LEADS T WAVE INVERSION NOW EVIDENT IN ANTERIOR LEADS Confirmed by YENI MCLEAN, FERNANDO ([id number]) on 05/20/2018 11:28:50 AM Referred By: Confirmed By:FERNANDO JAIME MD
[2018-05-20 11:34] LABS: ANISOCYTOSIS 1+; MACROCYTOSIS 0; PLATELET ESTIMATE DECREASED
[2018-05-20] MEDS ORDERED: PT OWN MED DRAWER 7, Y5N ONE ×2 (11:44→18:19)
[2018-05-20] MEDS: MEROPENEM 1 GM in DEXTROSE 5%-WATER 100 ML IVPB SCH ×2 (11:46→18:20)
--- NOTE | 2018-05-20 11:55 | PN ---
Teaching Attending Note Name of Resident: Sage Acosta ATTENDING PHYSICIAN STATEMENT I saw and evaluated the patient. I reviewed the resident's note and discussed the case with the resident. I agree with the resident's findings and plan as documented. SUBJECTIVE: Patient seen and examined in the ICU. Awake and alert. Reports breathing is slightly better. For ERCP today. Intake & Output 05/17/18 05/18/18 05/19/18 05/20/18 23:59 23:59 23:59 23:59 Intake Total 2100 Output Total 800 Balance 1300 Weight 145 lb Last Vital Signs Temp Pulse Resp BP Pulse Ox 98 F 89 28 H 120/91 100 05/20/18 10:00 05/20/18 10:00 05/20/18 10:00 05/20/18 10:00 05/20/18 09:00 Active Medications Chlorhexidine Gluconate (Hibiclens For Decolonization -) 1 applic TP HS JING Last Admin: 05/20/18 01:03 Dose: 1 applic Sodium Chloride (Normal Saline -) 1,000 mls @ 250 mls/hr IV ASDIR JING Last Admin: 05/19/18 21:10 Dose: 250 mls/hr Meropenem 1 gm/ Dextrose 100 mls @ 200 mls/hr IVPB Q8H-IV JING Last Admin: 05/20/18 11:46 Dose: 200 mls/hr Morphine Sulfate (Morphine Sulfate) 2 mg IVPUSH Q4H PRN PRN Reason: PAIN LEVEL 6-10 Mupirocin (Bactroban Ointment (For Decolonization) -) 1 applic NS BID JING Stop: 05/24/18 21:59 Last Admin: 05/20/18 10:00 Dose: 1 applic Constitutional: Yes: Thin, Mildly tachypneic at rest Eyes: Yes: Sclera Icterus HENT: Yes: Atraumatic, Normocephalic Neck: Yes: Supple, Trachea Midline Cardiovascular: Yes: Regular Rate and Rhythm Respiratory: Yes: Accessory Muscle Use, Tachypnea, basilar crackles Left > Right Gastrointestinal: Yes: Soft, Hepatomegaly ...Rectal Exam: Yes: Deferred Extremities: Yes: WNL Edema: No Wound/Incision: Yes: port Neurological: Yes: Alert, Oriented Labs: Laboratory Results - last 24 hr 05/19/18 05/19/18 05/19/18 17:16 17:16 17:16 WBC 7.3 RBC 4.44 Hgb 13.0 Hct 37.7 MCV 84.9 MCH 29.4 MCHC 34.6 RDW 19.2 H Plt Count 133 L D MPV 8.7 D Absolute Neuts (auto) 7.1 Neutrophils % 96.8 H Neutrophils % (Manual) 91.0 H Band Neutrophils % 5.0 Lymphocytes % 2.1 L D Lymphocytes % (Manual) 3.0 L D Monocytes % 0.6 L D Monocytes % (Manual) 1 L Eosinophils % 0.2 Eosinophils % (Manual) Basophils % 0.3 Basophils % (Manual) Myelocytes % (Man) Promyelocytes % (Man) Blast Cells % (Manual) Nucleated RBC % 0 Metamyelocytes Hypochromia 1+ Platelet Estimate Adequate Platelet Comment No clumping noted Polychromasia Poikilocytosis Anisocytosis 1+ Microcytosis Macrocytosis 1+ PT with INR 15.00 H INR 1.27 H PTT (Actin FS) 31.2 Anticoagulation Therapy Puncture Site ABG pH ABG pCO2 at Pt Temp ABG pO2 at Pt Temp ABG HCO3 ABG O2 Sat (Measured) ABG O2 Content ABG Base Excess Иван Test VBG pH POC VBG pCO2 POC VBG pO2 Mixed VBG HCO3 Carboxyhemoglobin Methemoglobin O2 Delivery Device Oxygen Flow Rate Vent Mode Vent Rate Mechanical Rate Pressure Support Vent Sodium Potassium Chloride Carbon Dioxide Anion Gap BUN Creatinine Creat Clearance w eGFR Random Glucose Lactic Acid Calcium Phosphorus Magnesium Total Bilirubin Direct Bilirubin AST ALT Alkaline Phosphatase Creatine Kinase Troponin I Total Protein Albumin Lipase Urine Color [place] Urine Appearance Turbid Urine pH 5.5 Ur Specific [place] >= 1.030 Urine Protein 3+ H D Urine Glucose (UA) Trace Urine Ketones Trace Urine Blood 2+ H Urine Nitrite Negative Urine Bilirubin 3+ H Urine Urobilinogen >=8.0 e.u./dl Ur Leukocyte Esterase Negative Urine WBC (Auto) 5 Urine RBC (Auto) 1 Ur Epithelial Cells Rare Urine Mucus Many Influenza A (Rapid) Influenza B (Rapid) Blood Type Antibody Screen 05/19/18 05/19/18 05/19/18 17:16 17:16 17:16 WBC RBC Hgb Hct MCV MCH MCHC RDW Plt Count MPV Absolute Neuts (auto) Neutrophils % Neutrophils % (Manual) Band Neutrophils % Lymphocytes % Lymphocytes % (Manual) Monocytes % Monocytes % (Manual) Eosinophils % Eosinophils % (Manual) Basophils % Basophils % (Manual) Myelocytes % (Man) Promyelocytes % (Man) Blast Cells % (Manual) Nucleated RBC % Metamyelocytes Hypochromia Platelet Estimate Platelet Comment Polychromasia Poikilocytosis Anisocytosis Microcytosis Macrocytosis PT with INR INR PTT (Actin FS) Anticoagulation Therapy Puncture Site ABG pH ABG pCO2 at Pt Temp ABG pO2 at Pt Temp ABG HCO3 ABG O2 Sat (Measured) ABG O2 Content ABG Base Excess Иван Test VBG pH 7.39 POC VBG pCO2 45.6 POC VBG pO2 20.1 L Mixed VBG HCO3 26.8 H Carboxyhemoglobin Methemoglobin O2 Delivery Device Oxygen Flow Rate Vent Mode Vent Rate Mechanical Rate Pressure Support Vent Sodium 139 Potassium 4.0 Chloride 103 Carbon Dioxide 26 Anion Gap 10 BUN 15 Creatinine 0.9 Creat Clearance w eGFR > 60 Random Glucose 102 Lactic Acid 3.6 H* Calcium 8.4 L Phosphorus Magnesium Total Bilirubin 5.5 H Direct Bilirubin AST 188 H ALT 91 H Alkaline Phosphatase 1109 H Creatine Kinase Troponin I Total Protein 6.0 L Albumin 2.0 L Lipase Urine Color Urine Appearance Urine pH Ur Specific [place] Urine Protein Urine Glucose (UA) Urine Ketones Urine Blood Urine Nitrite Urine Bilirubin Urine Urobilinogen Ur Leukocyte Esterase Urine WBC (Auto) Urine RBC (Auto) Ur Epithelial Cells Urine Mucus Influenza A (Rapid) Influenza B (Rapid) Blood Type Antibody Screen 05/19/18 05/19/18 05/19/18 17:16 17:16 17:16 WBC RBC Hgb Hct MCV MCH MCHC RDW Plt Count MPV Absolute Neuts (auto) Neutrophils % Neutrophils % (Manual) Band Neutrophils % Lymphocytes % Lymphocytes % (Manual) Monocytes % Monocytes % (Manual) Eosinophils % Eosinophils % (Manual) Basophils % Basophils % (Manual) Myelocytes % (Man) Promyelocytes % (Man) Blast Cells % (Manual) Nucleated RBC % Metamyelocytes Hypochromia Platelet Estimate Platelet Comment Polychromasia Poikilocytosis Anisocytosis Microcytosis Macrocytosis PT with INR INR PTT (Actin FS) Anticoagulation Therapy Puncture Site ABG pH ABG pCO2 at Pt Temp ABG pO2 at Pt Temp ABG HCO3 ABG O2 Sat (Measured) ABG O2 Content ABG Base Excess Иван Test VBG pH POC VBG pCO2 POC VBG pO2 Mixed VBG HCO3 Carboxyhemoglobin Methemoglobin O2 Delivery Device Oxygen Flow Rate Vent Mode Vent Rate Mechanical Rate Pressure Support Vent Sodium Potassium Chloride Carbon Dioxide Anion Gap BUN Creatinine Creat Clearance w eGFR Random Glucose Lactic Acid Calcium Phosphorus 1.4 L Magnesium 2.3 Total Bilirubin Direct Bilirubin AST ALT Alkaline Phosphatase Creatine Kinase 142 Troponin I < 0.02 Total Protein Albumin Lipase 250 Urine Color Urine Appearance Urine pH Ur Specific [place] Urine Protein Urine Glucose (UA) Urine Ketones Urine Blood Urine Nitrite Urine Bilirubin Urine Urobilinogen Ur Leukocyte Esterase Urine WBC (Auto) Urine RBC (Auto) Ur Epithelial Cells Urine Mucus Influenza A (Rapid) Influenza B (Rapid) Blood Type A NEGATIVE Antibody Screen Negative 05/19/18 05/19/18 05/20/18 17:48 19:10 00:00 WBC RBC Hgb Hct MCV MCH MCHC RDW Plt Count MPV Absolute Neuts (auto) Neutrophils % Neutrophils % (Manual) Band Neutrophils % Lymphocytes % Lymphocytes % (Manual) Monocytes % Monocytes % (Manual) Eosinophils % Eosinophils % (Manual) Basophils % Basophils % (Manual) Myelocytes % (Man) Promyelocytes % (Man) Blast Cells % (Manual) Nucleated RBC % Metamyelocytes Hypochromia Platelet Estimate Platelet Comment Polychromasia Poikilocytosis Anisocytosis Microcytosis Macrocytosis PT with INR INR PTT (Actin FS) Anticoagulation Therapy No Result Required. Puncture Site Right radial ABG pH 7.49 H ABG pCO2 at Pt Temp 31.1 L ABG pO2 at Pt Temp 147.0 H ABG HCO3 23.7 ABG O2 Sat (Measured) 99.2 H ABG O2 Content 15.0 ABG Base Excess 1.2 Иван Test Positive VBG pH POC VBG pCO2 POC VBG pO2 Mixed VBG HCO3 Carboxyhemoglobin 1.1 Methemoglobin 0.3 L O2 Delivery Device Non rebreather Oxygen Flow Rate 100% Vent Mode No Result Required. Vent Rate No Result Required. Mechanical Rate No Result Required. Pressure Support Vent No Result Required. Sodium Potassium Chloride Carbon Dioxide Anion Gap BUN Creatinine Creat Clearance w eGFR Random Glucose Lactic Acid 0.7 Calcium Phosphorus Magnesium Total Bilirubin Direct Bilirubin AST ALT Alkaline Phosphatase Creatine Kinase Troponin I Total Protein Albumin Lipase Urine Color Urine Appearance Urine pH Ur Specific [place] Urine Protein Urine Glucose (UA) Urine Ketones Urine Blood Urine Nitrite Urine Bilirubin Urine Urobilinogen Ur Leukocyte Esterase Urine WBC (Auto) Urine RBC (Auto) Ur Epithelial Cells Urine Mucus Influenza A (Rapid) Negative Influenza B (Rapid) Negative Blood Type Antibody Screen 05/20/18 05/20/18 05/20/18 05:30 05:30 05:30 WBC 14.6 H RBC 4.11 Hgb 11.3 L Hct 35.5 MCV 86.6 MCH 27.5 MCHC 31.8 L RDW 19.1 H Plt Count 75 L D MPV 9.0 Absolute Neuts (auto) 13.9 H Neutrophils % 95.7 H Neutrophils % (Manual) 81.5 Band Neutrophils % 16.5 Lymphocytes % 1.1 L D Lymphocytes % (Manual) 0.0 L Monocytes % 2.1 L D Monocytes % (Manual) 1 L Eosinophils % 1.1 D Eosinophils % (Manual) 0.0 Basophils % 0.0 Basophils % (Manual) 0.0 Myelocytes % (Man) 0 Promyelocytes % (Man) 0 Blast Cells % (Manual) 0 Nucleated RBC % 1 H Metamyelocytes 1 Hypochromia 0 Platelet Estimate Decreased Platelet Comment Present Polychromasia 0 Poikilocytosis 0 Anisocytosis 1+ Microcytosis 0 Macrocytosis 0 PT with INR 15.50 H INR 1.31 H PTT (Actin FS) Anticoagulation Therapy Puncture Site ABG pH ABG pCO2 at Pt Temp ABG pO2 at Pt Temp ABG HCO3 ABG O2 Sat (Measured) ABG O2 Content ABG Base Excess Иван Test VBG pH POC VBG pCO2 POC VBG pO2 Mixed VBG HCO3 Carboxyhemoglobin Methemoglobin O2 Delivery Device Oxygen Flow Rate Vent Mode Vent Rate Mechanical Rate Pressure Support Vent Sodium 141 Potassium 3.5 Chloride 108 H Carbon Dioxide 24 Anion Gap 9 BUN 12 Creatinine 0.6 Creat Clearance w eGFR > 60 Random Glucose 73 L Lactic Acid Calcium 7.3 L Phosphorus Magnesium Total Bilirubin 4.6 H Direct Bilirubin 3.9 H AST 152 H ALT 69 H Alkaline Phosphatase 837 H Creatine Kinase Troponin I Total Protein 4.8 L Albumin 1.6 L Lipase Urine Color Urine Appearance Urine pH Ur Specific [place] Urine Protein Urine Glucose (UA) Urine Ketones Urine Blood Urine Nitrite Urine Bilirubin Urine Urobilinogen Ur Leukocyte Esterase Urine WBC (Auto) Urine RBC (Auto) Ur Epithelial Cells Urine Mucus Influenza A (Rapid) Influenza B (Rapid) Blood Type Antibody Screen 05/20/18 05:30 WBC RBC Hgb Hct MCV MCH MCHC RDW Plt Count MPV Absolute Neuts (auto) Neutrophils % Neutrophils % (Manual) Band Neutrophils % Lymphocytes % Lymphocytes % (Manual) Monocytes % Monocytes % (Manual) Eosinophils % Eosinophils % (Manual) Basophils % Basophils % (Manual) Myelocytes % (Man) Promyelocytes % (Man) Blast Cells % (Manual) Nucleated RBC % Metamyelocytes Hypochromia Platelet Estimate Platelet Comment Polychromasia Poikilocytosis Anisocytosis Microcytosis Macrocytosis PT with INR INR PTT (Actin FS) 32.7 Anticoagulation Therapy Puncture Site ABG pH ABG pCO2 at Pt Temp ABG pO2 at Pt Temp ABG HCO3 ABG O2 Sat (Measured) ABG O2 Content ABG Base Excess Иван Test VBG pH POC VBG pCO2 POC VBG pO2 Mixed VBG HCO3 Carboxyhemoglobin Methemoglobin O2 Delivery Device Oxygen Flow Rate Vent Mode Vent Rate Mechanical Rate Pressure Support Vent Sodium Potassium Chloride Carbon Dioxide Anion Gap BUN Creatinine Creat Clearance w eGFR Random Glucose Lactic Acid Calcium Phosphorus Magnesium Total Bilirubin Direct Bilirubin AST ALT Alkaline Phosphatase Creatine Kinase Troponin I Total Protein Albumin Lipase Urine Color Urine Appearance Urine pH Ur Specific [place] Urine Protein Urine Glucose (UA) Urine Ketones Urine Blood Urine Nitrite Urine Bilirubin Urine Urobilinogen Ur Leukocyte Esterase Urine WBC (Auto) Urine RBC (Auto) Ur Epithelial Cells Urine Mucus Influenza A (Rapid) Influenza B (Rapid) Blood Type Antibody Screen Problem List - Problems (1) Sepsis Code(s): A41.9 - SEPSIS, UNSPECIFIED ORGANISM (2) Gram-negative bacteremia Code(s): R78.81 - BACTEREMIA (3) Obstructive jaundice due to cancer Code(s): K83.1 - OBSTRUCTION OF BILE DUCT; C80.1 - MALIGNANT (PRIMARY) NEOPLASM , UNSPECIFIED (4) Metastasis from rectal cancer Code(s): C79.9 - SECONDARY MALIGNANT NEOPLASM OF UNSPECIFIED SITE; C20 - MALIGNANT NEOPLASM OF RECTUM Assessment/Plan Will discuss with IR possible therapeutic thoracentesis. Risk may not be worth the benefit. Multi-loculated effusion with tumor studding the pleura. O2 to maintain saturation GI for possible ERCP ABX per ID Follow cultures CTS evaluation for PleureX assessment Follow CBC (worsening thrombocytopenia) Normal transfusion thresholds Need to clarify GOC due to overall condition ICU monitoring Dr Butler Critical care time spent in reviewing chart, evaluating patient and formulating plan - 36 minutes.
--- NOTE | 2018-05-20 13:58 | PN ---
Physical Exam: SUBJECTIVE: Patient seen and examined at bedside. Affirms SOB, chills, abd pain. OBJECTIVE: Vital Signs Period Temp Pulse Resp BP Sys/Zepeda Pulse Ox Last 24 Hr 97.4 F-101.7 F 82-145 20-30 98-152/56-98 95-100 GENERAL: A&Ox3, in distress, cachectic HEAD: NC/AT, temporal wasting EYES: PERRLA, EOMI ENT: MMM NECK: Trachea midline, full range of motion, supple. LUNGS: Crackles b/l HEART: tachycardic, no m/r/g ABDOMEN: scaphoid abdomen, +bs, TTP in RUQ and epigastrum, palpable hepatomegaly EXTREMITIES: 2+ pulses, warm, well-perfused, no edema. 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 w/o focal deficit Laboratory Results - last 24 hr 05/19/18 05/19/18 05/19/18 17:16 17:16 17:16 WBC 7.3 RBC 4.44 Hgb 13.0 Hct 37.7 MCV 84.9 MCH 29.4 MCHC 34.6 RDW 19.2 H Plt Count 133 L D MPV 8.7 D Absolute Neuts (auto) 7.1 Neutrophils % 96.8 H Neutrophils % (Manual) 91.0 H Band Neutrophils % 5.0 Lymphocytes % 2.1 L D Lymphocytes % (Manual) 3.0 L D Monocytes % 0.6 L D Monocytes % (Manual) 1 L Eosinophils % 0.2 Eosinophils % (Manual) Basophils % 0.3 Basophils % (Manual) Myelocytes % (Man) Promyelocytes % (Man) Blast Cells % (Manual) Nucleated RBC % 0 Metamyelocytes Hypochromia 1+ Platelet Estimate Adequate Platelet Comment No clumping noted Polychromasia Poikilocytosis Anisocytosis 1+ Microcytosis Macrocytosis 1+ PT with INR 15.00 H INR 1.27 H PTT (Actin FS) 31.2 Anticoagulation Therapy Puncture Site ABG pH ABG pCO2 at Pt Temp ABG pO2 at Pt Temp ABG HCO3 ABG O2 Sat (Measured) ABG O2 Content ABG Base Excess Иван Test VBG pH POC VBG pCO2 POC VBG pO2 Mixed VBG HCO3 Carboxyhemoglobin Methemoglobin O2 Delivery Device Oxygen Flow Rate Vent Mode Vent Rate Mechanical Rate Pressure Support Vent Sodium Potassium Chloride Carbon Dioxide Anion Gap BUN Creatinine Creat Clearance w eGFR Random Glucose Lactic Acid Calcium Phosphorus Magnesium Total Bilirubin Direct Bilirubin AST ALT Alkaline Phosphatase Creatine Kinase Troponin I Total Protein Albumin Lipase Urine Color [place] Urine Appearance Turbid Urine pH 5.5 Ur Specific [place] >= 1.030 Urine Protein 3+ H D Urine Glucose (UA) Trace Urine Ketones Trace Urine Blood 2+ H Urine Nitrite Negative Urine Bilirubin 3+ H Urine Urobilinogen >=8.0 e.u./dl Ur Leukocyte Esterase Negative Urine WBC (Auto) 5 Urine RBC (Auto) 1 Ur Epithelial Cells Rare Urine Mucus Many Influenza A (Rapid) Influenza B (Rapid) Blood Type Antibody Screen 05/19/18 05/19/18 05/19/18 17:16 17:16 17:16 WBC RBC Hgb Hct MCV MCH MCHC RDW Plt Count MPV Absolute Neuts (auto) Neutrophils % Neutrophils % (Manual) Band Neutrophils % Lymphocytes % Lymphocytes % (Manual) Monocytes % Monocytes % (Manual) Eosinophils % Eosinophils % (Manual) Basophils % Basophils % (Manual) Myelocytes % (Man) Promyelocytes % (Man) Blast Cells % (Manual) Nucleated RBC % Metamyelocytes Hypochromia Platelet Estimate Platelet Comment Polychromasia Poikilocytosis Anisocytosis Microcytosis Macrocytosis PT with INR INR PTT (Actin FS) Anticoagulation Therapy Puncture Site ABG pH ABG pCO2 at Pt Temp ABG pO2 at Pt Temp ABG HCO3 ABG O2 Sat (Measured) ABG O2 Content ABG Base Excess Иван Test VBG pH 7.39 POC VBG pCO2 45.6 POC VBG pO2 20.1 L Mixed VBG HCO3 26.8 H Carboxyhemoglobin Methemoglobin O2 Delivery Device Oxygen Flow Rate Vent Mode Vent Rate Mechanical Rate Pressure Support Vent Sodium 139 Potassium 4.0 Chloride 103 Carbon Dioxide 26 Anion Gap 10 BUN 15 Creatinine 0.9 Creat Clearance w eGFR > 60 Random Glucose 102 Lactic Acid 3.6 H* Calcium 8.4 L Phosphorus Magnesium Total Bilirubin 5.5 H Direct Bilirubin AST 188 H ALT 91 H Alkaline Phosphatase 1109 H Creatine Kinase Troponin I Total Protein 6.0 L Albumin 2.0 L Lipase Urine Color Urine Appearance Urine pH Ur Specific [place] Urine Protein Urine Glucose (UA) Urine Ketones Urine Blood Urine Nitrite Urine Bilirubin Urine Urobilinogen Ur Leukocyte Esterase Urine WBC (Auto) Urine RBC (Auto) Ur Epithelial Cells Urine Mucus Influenza A (Rapid) Influenza B (Rapid) Blood Type Antibody Screen 05/19/18 05/19/18 05/19/18 17:16 17:16 17:16 WBC RBC Hgb Hct MCV MCH MCHC RDW Plt Count MPV Absolute Neuts (auto) Neutrophils % Neutrophils % (Manual) Band Neutrophils % Lymphocytes % Lymphocytes % (Manual) Monocytes % Monocytes % (Manual) Eosinophils % Eosinophils % (Manual) Basophils % Basophils % (Manual) Myelocytes % (Man) Promyelocytes % (Man) Blast Cells % (Manual) Nucleated RBC % Metamyelocytes Hypochromia Platelet Estimate Platelet Comment Polychromasia Poikilocytosis Anisocytosis Microcytosis Macrocytosis PT with INR INR PTT (Actin FS) Anticoagulation Therapy Puncture Site ABG pH ABG pCO2 at Pt Temp ABG pO2 at Pt Temp ABG HCO3 ABG O2 Sat (Measured) ABG O2 Content ABG Base Excess Иван Test VBG pH POC VBG pCO2 POC VBG pO2 Mixed VBG HCO3 Carboxyhemoglobin Methemoglobin O2 Delivery Device Oxygen Flow Rate Vent Mode Vent Rate Mechanical Rate Pressure Support Vent Sodium Potassium Chloride Carbon Dioxide Anion Gap BUN Creatinine Creat Clearance w eGFR Random Glucose Lactic Acid Calcium Phosphorus 1.4 L Magnesium 2.3 Total Bilirubin Direct Bilirubin AST ALT Alkaline Phosphatase Creatine Kinase 142 Troponin I < 0.02 Total Protein Albumin Lipase 250 Urine Color Urine Appearance Urine pH Ur Specific [place] Urine Protein Urine Glucose (UA) Urine Ketones Urine Blood Urine Nitrite Urine Bilirubin Urine Urobilinogen Ur Leukocyte Esterase Urine WBC (Auto) Urine RBC (Auto) Ur Epithelial Cells Urine Mucus Influenza A (Rapid) Influenza B (Rapid) Blood Type A NEGATIVE Antibody Screen Negative 05/19/18 05/19/18 05/20/18 17:48 19:10 00:00 WBC RBC Hgb Hct MCV MCH MCHC RDW Plt Count MPV Absolute Neuts (auto) Neutrophils % Neutrophils % (Manual) Band Neutrophils % Lymphocytes % Lymphocytes % (Manual) Monocytes % Monocytes % (Manual) Eosinophils % Eosinophils % (Manual) Basophils % Basophils % (Manual) Myelocytes % (Man) Promyelocytes % (Man) Blast Cells % (Manual) Nucleated RBC % Metamyelocytes Hypochromia Platelet Estimate Platelet Comment Polychromasia Poikilocytosis Anisocytosis Microcytosis Macrocytosis PT with INR INR PTT (Actin FS) Anticoagulation Therapy No Result Required. Puncture Site Right radial ABG pH 7.49 H ABG pCO2 at Pt Temp 31.1 L ABG pO2 at Pt Temp 147.0 H ABG HCO3 23.7 ABG O2 Sat (Measured) 99.2 H ABG O2 Content 15.0 ABG Base Excess 1.2 Иван Test Positive VBG pH POC VBG pCO2 POC VBG pO2 Mixed VBG HCO3 Carboxyhemoglobin 1.1 Methemoglobin 0.3 L O2 Delivery Device Non rebreather Oxygen Flow Rate 100% Vent Mode No Result Required. Vent Rate No Result Required. Mechanical Rate No Result Required. Pressure Support Vent No Result Required. Sodium Potassium Chloride Carbon Dioxide Anion Gap BUN Creatinine Creat Clearance w eGFR Random Glucose Lactic Acid 0.7 Calcium Phosphorus Magnesium Total Bilirubin Direct Bilirubin AST ALT Alkaline Phosphatase Creatine Kinase Troponin I Total Protein Albumin Lipase Urine Color Urine Appearance Urine pH Ur Specific [place] Urine Protein Urine Glucose (UA) Urine Ketones Urine Blood Urine Nitrite Urine Bilirubin Urine Urobilinogen Ur Leukocyte Esterase Urine WBC (Auto) Urine RBC (Auto) Ur Epithelial Cells Urine Mucus Influenza A (Rapid) Negative Influenza B (Rapid) Negative Blood Type Antibody Screen 05/20/18 05/20/18 05/20/18 05:30 05:30 05:30 WBC 14.6 H RBC 4.11 Hgb 11.3 L Hct 35.5 MCV 86.6 MCH 27.5 MCHC 31.8 L RDW 19.1 H Plt Count 75 L D MPV 9.0 Absolute Neuts (auto) 13.9 H Neutrophils % 95.7 H Neutrophils % (Manual) 81.5 Band Neutrophils % 16.5 Lymphocytes % 1.1 L D Lymphocytes % (Manual) 0.0 L Monocytes % 2.1 L D Monocytes % (Manual) 1 L Eosinophils % 1.1 D Eosinophils % (Manual) 0.0 Basophils % 0.0 Basophils % (Manual) 0.0 Myelocytes % (Man) 0 Promyelocytes % (Man) 0 Blast Cells % (Manual) 0 Nucleated RBC % 1 H Metamyelocytes 1 Hypochromia 0 Platelet Estimate Decreased Platelet Comment Present Polychromasia 0 Poikilocytosis 0 Anisocytosis 1+ Microcytosis 0 Macrocytosis 0 PT with INR 15.50 H INR 1.31 H PTT (Actin FS) Anticoagulation Therapy Puncture Site ABG pH ABG pCO2 at Pt Temp ABG pO2 at Pt Temp ABG HCO3 ABG O2 Sat (Measured) ABG O2 Content ABG Base Excess Иван Test VBG pH POC VBG pCO2 POC VBG pO2 Mixed VBG HCO3 Carboxyhemoglobin Methemoglobin O2 Delivery Device Oxygen Flow Rate Vent Mode Vent Rate Mechanical Rate Pressure Support Vent Sodium 141 Potassium 3.5 Chloride 108 H Carbon Dioxide 24 Anion Gap 9 BUN 12 Creatinine 0.6 Creat Clearance w eGFR > 60 Random Glucose 73 L Lactic Acid Calcium 7.3 L Phosphorus Magnesium Total Bilirubin 4.6 H Direct Bilirubin 3.9 H AST 152 H ALT 69 H Alkaline Phosphatase 837 H Creatine Kinase Troponin I Total Protein 4.8 L Albumin 1.6 L Lipase Urine Color Urine Appearance Urine pH Ur Specific [place] Urine Protein Urine Glucose (UA) Urine Ketones Urine Blood Urine Nitrite Urine Bilirubin Urine Urobilinogen Ur Leukocyte Esterase Urine WBC (Auto) Urine RBC (Auto) Ur Epithelial Cells Urine Mucus Influenza A (Rapid) Influenza B (Rapid) Blood Type Antibody Screen 05/20/18 05:30 WBC RBC Hgb Hct MCV MCH MCHC RDW Plt Count MPV Absolute Neuts (auto) Neutrophils % Neutrophils % (Manual) Band Neutrophils % Lymphocytes % Lymphocytes % (Manual) Monocytes % Monocytes % (Manual) Eosinophils % Eosinophils % (Manual) Basophils % Basophils % (Manual) Myelocytes % (Man) Promyelocytes % (Man) Blast Cells % (Manual) Nucleated RBC % Metamyelocytes Hypochromia Platelet Estimate Platelet Comment Polychromasia Poikilocytosis Anisocytosis Microcytosis Macrocytosis PT with INR INR PTT (Actin FS) 32.7 Anticoagulation Therapy Puncture Site ABG pH ABG pCO2 at Pt Temp ABG pO2 at Pt Temp ABG HCO3 ABG O2 Sat (Measured) ABG O2 Content ABG Base Excess Иван Test VBG pH POC VBG pCO2 POC VBG pO2 Mixed VBG HCO3 Carboxyhemoglobin Methemoglobin O2 Delivery Device Oxygen Flow Rate Vent Mode Vent Rate Mechanical Rate Pressure Support Vent Sodium Potassium Chloride Carbon Dioxide Anion Gap BUN Creatinine Creat Clearance w eGFR Random Glucose Lactic Acid Calcium Phosphorus Magnesium Total Bilirubin Direct Bilirubin AST ALT Alkaline Phosphatase Creatine Kinase Troponin I Total Protein Albumin Lipase Urine Color Urine Appearance Urine pH Ur Specific [place] Urine Protein Urine Glucose (UA) Urine Ketones Urine Blood Urine Nitrite Urine Bilirubin Urine Urobilinogen Ur Leukocyte Esterase Urine WBC (Auto) Urine RBC (Auto) Ur Epithelial Cells Urine Mucus Influenza A (Rapid) Influenza B (Rapid) Blood Type Antibody Screen Active Medications Generic Name Dose Route Start Last Admin Trade Name Freq PRN Reason Stop Dose Admin Chlorhexidine Gluconate 1 applic 05/19/18 22:00 05/20/18 01:03 Hibiclens For Decolonization - TP 1 applic HS JING Administration Sodium Chloride 1,000 mls @ 250 mls/hr 05/19/18 20:33 05/19/18 21:10 Normal Saline - IV 250 mls/hr ASDIR JING Administration Meropenem 1 gm/ Dextrose 100 mls @ 200 mls/hr 05/20/18 10:00 05/20/18 11:46 IVPB 200 mls/hr Q8H-IV JING Administration Morphine Sulfate 2 mg 05/19/18 19:26 Morphine Sulfate IVPUSH Q4H PRN PAIN LEVEL 6-10 Mupirocin 1 applic 05/19/18 22:00 05/20/18 10:00 Bactroban Ointment (For Decolonization) - NS 05/24/18 21:59 1 applic BID JING Administration ASSESSMENT/PLAN: 47 y/o M w/ PMHx colorectal Ca s/p chemoRT w/ known mets to lung and liver p/w abd pain/SOB/f/c/bilious vomiting x 1 week after biliary stent replacement at [facility] (originally placed 4 m/a at [facility] then [facility]), on presentation febrile and jaundiced w/ RUQ pain, admitted for cholangitis. #CV -presented in sepsis w/ tachycardia, fever, hypotension -BP stabilized w/ fluid resuscitation -no need for pressors at this time -NS @ 250 #GI -CT a/p showing ascites, mesenteric edema, intrahepatic biliary dilatation, numerous liver mets, newly identified adrenal mets -LFTs and alk phos improving but grossly elevated -ERCP today #pulmonary -progressively worsening SOB and labored breathing -CT chest showing numerous lung mets, b/l effusion L>R, multiloculated likely malignant effusion w/ tumor throughout pleura causing atelectasis and consolidation -will discuss thoracentesis w/ IR, however given space occupying lesions throughout zone of safety, multiloculated effusion, and declining platelets, risk of intervention is high with questionable benefit #heme-onc -oncology consulted -GOC need to be clarified -H/H and platelets declining -normal transfusion thresholds -morphine for pain control -palliative care would be appropriate at this time #ID -BCx: 5 bottles growing Gnb -meropenem ABx per ID #FEN -NS @ 250 -monitor and replete electrolytes -NPO #PPx -DVT: SCDs, no pharmacologic AC given thrombocytopenia -GI: not indicated #code -full #dispo -continue to monitor in ICU Visit type - Emergency Visit Emergency Visit: No - New Patient This patient is new to me today: Yes Date on this admission: 05/20/18 - Critical Care Critical Care patient: Yes Total Critical Care Time (in minutes): 40 Critical Care Statement: The care of this patient involved high complexity decision making to prevent further life threatening deterioration of the patient 's condition and/or to evaluate & treat vital organ system(s) failure or risk of failure.
[2018-05-20] MEDS ORDERED: PIPERACILLIN/TAZOB 4.5 GM 4.5 GM in DEXTROSE 5%-WATER 100 ML IVPB SCH (14:00)
--- NOTE | 2018-05-20 14:13 | PN ---
Progress Note (short form) - Note Progress Note: pt appears to be SOB no abd pain no nausea Vital Signs - 24 hr 05/20/18 05/20/18 05/20/18 00:56 02:00 04:00 Temperature 99 F Pulse Rate 97 H 98 H 83 Respiratory 30 H 29 H 30 H Rate Blood Pressure 130/93 116/68 122/84 O2 Sat by Pulse Oximetry (%) 05/20/18 05/20/18 05/20/18 06:00 08:00 09:00 Temperature 97.4 F L 98.2 F Pulse Rate 83 82 Respiratory 28 H 30 H Rate Blood Pressure 119/84 133/98 O2 Sat by Pulse 100 Oximetry (%) 05/20/18 05/20/18 05/20/18 10:00 14:00 16:00 Temperature 98 F 98.2 F 98.4 F Pulse Rate 89 Respiratory 28 H 33 H Rate Blood Pressure 120/91 133/87 O2 Sat by Pulse Oximetry (%) 05/20/18 05/20/18 05/20/18 18:00 20:00 20:44 Temperature 98.6 F Pulse Rate 89 Respiratory 32 H 31 H 31 H Rate Blood Pressure 132/80 142/93 O2 Sat by Pulse 100 Oximetry (%) 05/20/18 22:00 Temperature 98.8 F Pulse Rate 97 H Respiratory 31 H Rate Blood Pressure 139/89 O2 Sat by Pulse Oximetry (%) Laboratory Results - last 24 hr 05/20/18 05/20/18 05/20/18 00:00 05:30 05:30 WBC 14.6 H RBC 4.11 Hgb 11.3 L Hct 35.5 MCV 86.6 MCH 27.5 MCHC 31.8 L RDW 19.1 H Plt Count 75 L D MPV 9.0 Absolute Neuts (auto) 13.9 H Neutrophils % 95.7 H Neutrophils % (Manual) 81.5 Band Neutrophils % 16.5 Lymphocytes % 1.1 L D Lymphocytes % (Manual) 0.0 L Monocytes % 2.1 L D Monocytes % (Manual) 1 L Eosinophils % 1.1 D Eosinophils % (Manual) 0.0 Basophils % 0.0 Basophils % (Manual) 0.0 Myelocytes % (Man) 0 Promyelocytes % (Man) 0 Blast Cells % (Manual) 0 Nucleated RBC % 1 H Metamyelocytes 1 Hypochromia 0 Platelet Estimate Decreased Platelet Comment Present Polychromasia 0 Poikilocytosis 0 Anisocytosis 1+ Microcytosis 0 Macrocytosis 0 PT with INR INR PTT (Actin FS) Sodium 141 Potassium 3.5 Chloride 108 H Carbon Dioxide 24 Anion Gap 9 BUN 12 Creatinine 0.6 Creat Clearance w eGFR > 60 Random Glucose 73 L Lactic Acid 0.7 Calcium 7.3 L Total Bilirubin 4.6 H Direct Bilirubin 3.9 H AST 152 H ALT 69 H Alkaline Phosphatase 837 H Total Protein 4.8 L Albumin 1.6 L 05/20/18 05/20/18 05/20/18 05:30 05:30 14:30 WBC RBC Hgb Hct MCV MCH MCHC RDW Plt Count MPV Absolute Neuts (auto) Neutrophils % Neutrophils % (Manual) Band Neutrophils % Lymphocytes % Lymphocytes % (Manual) Monocytes % Monocytes % (Manual) Eosinophils % Eosinophils % (Manual) Basophils % Basophils % (Manual) Myelocytes % (Man) Promyelocytes % (Man) Blast Cells % (Manual) Nucleated RBC % Metamyelocytes Hypochromia Platelet Estimate Platelet Comment Polychromasia Poikilocytosis Anisocytosis Microcytosis Macrocytosis PT with INR 15.50 H 14.50 H INR 1.31 H 1.23 H PTT (Actin FS) 32.7 32.1 Sodium Potassium Chloride Carbon Dioxide Anion Gap BUN Creatinine Creat Clearance w eGFR Random Glucose Lactic Acid Calcium Total Bilirubin Direct Bilirubin AST ALT Alkaline Phosphatase Total Protein Albumin S1 S2 RRR Lungs can not hear air entry ABd- soft, NT icteric+ no edema PLAN will need thoracentesis-- pt has malignant effusion will need ERCP- spoke with GI-- will transfer pt to [facility] for ERCP and stent placement continue with iv antibiotics prognosis is guarded septic Problem List - Problems (1) Abdominal pain Code(s): R10.9 - UNSPECIFIED ABDOMINAL PAIN Qualifiers: Abdominal location: upper abdomen, unspecified Qualified Code(s): R10.10 - Upper abdominal pain, unspecified (2) Cholestatic jaundice Code(s): R17 - UNSPECIFIED JAUNDICE (3) Colitis Code(s): K52.9 - NONINFECTIVE GASTROENTERITIS AND COLITIS, UNSPECIFIED (4) Colon cancer Code(s): C18.9 - MALIGNANT NEOPLASM OF COLON, UNSPECIFIED (5) Common bile duct stricture Code(s): K83.1 - OBSTRUCTION OF BILE DUCT (6) Gram-negative bacteremia Code(s): R78.81 - BACTEREMIA
--- NOTE | 2018-05-20 14:53 | PN ---
GI Progress Note Subjective: No acute events patient awake, tachypnic, improved abdominal pain - Objective Vital Signs: Vital Signs Temperature 98 F 05/20/18 10:00 Pulse Rate 89 05/20/18 10:00 Respiratory Rate 28 H 05/20/18 10:00 Blood Pressure 120/91 05/20/18 10:00 O2 Sat by Pulse Oximetry (%) 100 05/20/18 09:00 Constitutional: Calm Eyes: Yes: Sclera Icterus Cardiovascular: Yes: Regular Rate and Rhythm Respiratory: Yes: Diminished (bases bilaterally L>R) Gastrointestinal Inspection: No: Distention ...Auscultate: Yes: Normoactive Bowel Sounds ...Palpate: Yes: Tenderness (Mild TTP RUQ/Epigastrium) ...Percussion: No: Tympanitic Edema: Yes Neurological: Yes: Alert Labs: CBC, BMP 05/20/18 05:30 05/20/18 05:30 INR, PTT INR 1.31 (0.83-1.09) H 05/20/18 05:30 - ....Imaging Cat Scan: Report Reviewed, Image Reviewed Problem List - Problems (1) Obstructive jaundice due to cancer Assessment/Plan: Spoke with Dr. Charles. he reviewed the CT scan: metal stent in place preferntially in left intrahepatic ductal system and not draining the right. [place] that further therapeutics would be needed. spoke With Dr. Virk from [facility]. He explained that Mr. Harden presented to [facility] with bilirubin of 5, cholangitis and that previous plastic stent was removed. He felt that another stent may need to be [placed to drain the right ductal system. He was unable to visualize tthe right system via cholangiogram. he explained further that he will be leaving the country this afternoon and that Dr. Escudero, the other advanced biliary endoscopist working @ [facility], would be away next week. He stated that he would talk with Dr. Anatoliy Jones at [facility] to make him aware of the patient and help facilitate transfer to tertiary care center. In review of images from this CT scan to images from ERCP at [facility], he feels the sten has migrated. The need for transfer was explained to Mr. Rushing as well in Turkish. For now: Continue IV hydration IV Abx Monitor LFTs Pulmonary evaluating re: left pleural effusion Code(s): K83.1 - OBSTRUCTION OF BILE DUCT; C80.1 - MALIGNANT (PRIMARY) NEOPLASM , UNSPECIFIED
--- NOTE | 2018-05-20 15:32 | PN ---
Progress Note (short form) - Note Progress Note: Spoke with Dr. Virk: called Dr. Jones, left message. D/W / Melvin: felt that attempt at placement of another stent in current clinical setting will likely be complicated and that transfer where advanced biliary endoscopy performed is prudent. Called [facility] transfer center: [place] with Dr. Arevalo and discussed currently clinical situation. She will be attempting to contact Dr. Jones or his covering physician and call me back. I gave her my cell phone #. Discussed current clinical situation and plan with Dr. Ale Isbell. Problem List - Problems (1) Obstructive jaundice due to cancer Code(s): K83.1 - OBSTRUCTION OF BILE DUCT; C80.1 - MALIGNANT (PRIMARY) NEOPLASM , UNSPECIFIED
[2018-05-20] MEDS: SODIUM CHLORIDE 1,000 ML IV SCH ×2 (15:54→21:33)
[2018-05-20 16:40] LABS: INR 1.23 (0.83-1.09); PROTHROMBIN TIME (PATIENT) 14.5 SEC (9.7-13.0)
[2018-05-20 16:43] LABS: ACTIVATED PTT 32.1 SECONDS (25.2-36.5)
[2018-05-20 22:26] VITALS: BP 139/89; PULSE 97; TEMP 98.8
--- NOTE | 2018-05-21 17:10 | DS ---
Physical Examination Vital Signs: Vital Signs Temperature 98.8 F 05/20/18 22:00 Pulse Rate 97 H 05/20/18 22:00 Respiratory Rate 31 H 05/20/18 22:00 Blood Pressure 139/89 05/20/18 22:00 O2 Sat by Pulse Oximetry (%) 100 05/20/18 20:44 Labs: CBC, BMP 05/20/18 05:30 05/20/18 05:30 Discharge Summary Reason For Visit: PLEURAL EFFUSION/SEVERE SEPSIS Hospital Course: transferred to [facility] for sepsis, ERCP - for stent placement Condition: Good - Instructions Diet, Activity, Other Instructions: You are being transfered to [facility] for further management. NPO for now .Increase activity as tolerated. Referrals: Bronson Morse MD [Primary Care Provider] - Disposition: TRANSFER ACUTE CARE/OTHER HOSP - Home Medications Comprehensive Discharge Medication List: Ambulatory Orders NK [No Known Home Medication] 01/26/18
== END 2018-05-20 23:08 | disposition short-term general hospital (02) | DRG 871 ==
LOC: JER 16:18 → JERBED 20:36 → JICU 05-20 00:06
PROVIDERS: ADMIT Internal Medicine; ATTEND Internal Medicine
DX: A41.59 Other Gram-negative sepsis (principal); K83.1 Obstruction of bile duct; C78.00 Secondary malignant neoplasm of unspecified lung; J90 Pleural effusion, not elsewhere classified; C78.7 Secondary malignant neoplasm of liver and intrahepatic bile duct; C79.00 Secondary malignant neoplasm of unspecified kidney and renal pelvis; R64 Cachexia; R18.8 Other ascites; C79.70 Secondary malignant neoplasm of unspecified adrenal gland; Z85.048 Personal history of other malignant neoplasm of rectum, rectosigmoid junction, and anus; Z68.22 Body mass index [BMI] 22.0-22.9, adult; R51 Headache; R00.0 Tachycardia, unspecified; D69.6 Thrombocytopenia, unspecified; I95.9 Hypotension, unspecified
CPT/HCPCS: 36415; 36600; 71045-TC-FY; 71260-TC; 74177-TC; 80048; 80053; 80076; 81003; 81015; 82375; 82550; 82803; 83050; 83605; 83690; 83735; 84100; 84484; 85025; 85610; 85730; 86850; 86900; 86901; 87040; 87086; 87186; 87804; 93005; 93010; 99285-25; J0131; J7030